=== PATIENT | male | born 1965 | race Caucasian/White ===

== ENCOUNTER 2017-06-21 10:01 | Emergency (ER) | payer OTHER ==
[~2017-06-21] VITALS: Ht 182.9 cm; Wt 84.2 kg
[2017-06-21 10:02] VITALS: TEMP 36.7; Ht 182.9 cm; Wt 84.2 kg
[2017-06-21] MEDS ORDERED: ACET-1256 PO (10:34)
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
[2017-06-21 11:24] VITALS: BP 125/77; PULSE 54; O2SAT 98
== END 2017-06-21 11:25 | disposition home or self-care (01) ==
LOC: C.EDB 10:02
DX: M25.511 Pain in right shoulder (principal); V89.2XXA Person injured in unspecified motor-vehicle accident, traffic, initial encounter; F17.210 Nicotine dependence, cigarettes, uncomplicated

== ENCOUNTER → 2017-09-01 | Outpatient (CLI) | payer OTHER ==
[~2017-09-01] MED LIST: ACET-1256 PO; GADAVIST IV PRN
--- NOTE | 2017-09-01 10:43 | DIAGNOSTIC IMAGING REPORT ---
FLUOROSCOPICALLY GUIDED PRE-MRI RIGHT SHOULDER ARTHROGRAPHIC INJECTION CLINICAL HISTORY: RT SHOULDER PAIN COMPARISON STUDY: Conventional radiographic study dated to 318 FINDINGS: A timeout was performed. The risks the procedure were explained the patient informed consent was obtained. 15 seconds of fluoroscopic time was utilized. A single fluoroscopic spot image was acquired. The patient was prepped and draped in sterile fashion. The skin was anesthetized 1% lidocaine. Under fluoroscopic guidance a 22-gauge spinal needle was introduced into the joint capsule. A mixture of Optiray 300 and gadolinium was injected into the joint. A fluoroscopic spot image confirmed intra-articular location of the contrast. IMPRESSION: Successful right shoulder arthrogram preceding and MRI. Electronically signed by: Jose Sarkar M.D. 09/01/2017 10:42 AM Dictated Date/Time: 09/01/2017 10:40 AM
--- NOTE | 2017-09-01 11:23 | DIAGNOSTIC IMAGING REPORT ---
POST ARTHROGRAM MRI THE RIGHT SHOULDER CLINICAL HISTORY: RT SHOULDER PAIN COMPARISON STUDY: Conventional radiographic study dated June 21, 2017 FINDINGS: Following a gadolinium arthrogram, imaging was performed in sagittal, axial, and coronal planes. There are no areas of marrow edema to indicate occult fracture or bone bruise. There is a longitudinal split tear of the bicipital tendon. There is extensive supraspinatus tendinopathy with a very large partial-thickness tear which is nearly full thickness. There is also a partial-thickness tear of the undersurface of the infraspinatus tendon. There is subtle subchondral cysts within the humeral head. There is a small peritendinous calcification at the level of the supraspinatus insertion No labral tears are visualized. IMPRESSION: 1. Very large partial-thickness tear of the supraspinatus tendon which is nearly full thickness. There is also a partial-thickness tear of the infraspinatus tendon. 2. Longitudinal split tear of the bicipital tendon 3. No evidence of labral tear Electronically signed by: Jose Sarkar M.D. 09/01/2017 11:21 AM Dictated Date/Time: 09/01/2017 11:15 AM
== END | disposition home or self-care (01) ==
LOC: C.MRIBC 09:50
PROVIDERS: ATTEND Orthopaedic Surgery
DX: M25.511 Pain in right shoulder (principal); S46.011A Strain of muscle(s) and tendon(s) of the rotator cuff of right shoulder, initial encounter; S46.211A Strain of muscle, fascia and tendon of other parts of biceps, right arm, initial encounter; X58.XXXA Exposure to other specified factors, initial encounter

== ENCOUNTER → 2017-10-04 | Outpatient (CLI) | payer OTHER ==
[~2017-10-04] MED LIST changes: -GADAVIST IV PRN
[2017-10-04 09:57] LABS: BASO % 0.2 %; BASO ABS # 0.01 K/uL (0-0.2); EOS % 1.3 %; EOS ABS # 0.06 K/uL (0-0.5); HEMATOCRIT 44.6 % (42-52); HEMOGLOBIN 15.5 g/dL (14.0-18.0); IG# 0.01 K/uL (0.00-0.02); LYMPH % 37.2 %; LYMPH ABS # 1.72 K/uL (1.2-3.4); MEAN CELL VOLUME 96.7 fL (80-100); MEAN CORPUSCULAR HEMOGLOBIN 33.6 pg (25-34); MEAN CORPUSCULAR HGB CONC 34.8 g/dl (32-36); MEAN PLATELET VOLUME 9.9 fL (7.4-10.4); MONO % 5.4 %; MONO ABS # 0.25 K/uL (0.11-0.59); NEUT % 55.7 %; NEUT ABS # 2.57 K/uL (1.4-6.5); PLATELET COUNT 198 K/uL (130-400); RED CELL DISTRIBUTION WIDTH CV 12.3 % (11.5-14.5); RED CELL DISTRIBUTION WIDTH SD 43.3 fL (36.4-46.3); WHITE BLOOD COUNT 4.62 K/uL (4.8-10.8)
[2017-10-04 10:20] LABS: BLOOD UREA NITROGEN 16 mg/dl (7-18); CARBON DIOXIDE 28 mmol/L (21-32); CREATININE 1.01 mg/dl (0.60-1.40); GLUCOSE 105 mg/dl (70-99); SODIUM 138 mmol/L (136-145)
== END | disposition home or self-care (01) ==
LOC: C.CPL 09:12
PROVIDERS: ATTEND Orthopaedic Surgery
DX: M25.511 Pain in right shoulder (principal)

== ENCOUNTER 2021-07-20 08:14 | Inpatient (IN) ==
[2021-07-20] MEDS ORDERED: SODIUM CHLORIDE 0.9% 1000ML 1,000 ML IV ONE (08:40)
[2021-07-20] MEDS ORDERED: THIAMINE HCL 200 MG in SODIUM CHLORIDE 0.9% 50 ML IV STA (08:51)
[2021-07-20] MEDS ORDERED: dexAMETHasone**PF** 10 MG/ML VIAL IV ONE (08:51)
[2021-07-20] MEDS ORDERED: ALBUT/IPRATROP 3MG/0.5MG NEB 3 ML VIAL NEB STA (08:51)
[2021-07-20] MEDS ORDERED: MULTI-VITAMIN INFUSION 10 ML, THIAMINE HCL 100 MG, FOLIC ACID 1 MG in SODIUM CHLORIDE 0... IV ONE (08:51)
[2021-07-20] MEDS ORDERED: ONDANSETRON INJ 2 MG/ML 2 ML VIAL IV STA (08:52)
[2021-07-20] MEDS ORDERED: LORazepam 2 MG/1 ML VIAL IV STA ×2 (08:52→13:53)
[2021-07-20] MEDS ORDERED: FAMOTIDINE 20MG IV PUSH 20 MG/5 ML SYR IV STA (08:52)
--- NOTE | 2021-07-20 08:59 | Emergency Department Note ---
Impression & Plan Alcohol withdrawal, EtOH dependence, Hypokalemia, Low serum magnesium level ED Provider Note NAME: JAJA ORELLANA AGE: 55 SEX: M ARRIVES VIA: Walk-In INFORMANT: Patient ED PROVIDER(S): Denis Lebron MD CHIEF COMPLAINT: Weakness, nausea, congestion, sob PLAN: Disposition: Admit MEDICAL DECISION MAKING: The patient is a pleasant 55-year-old gentleman with a past medical history of alcohol abuse/dependence, anemia, asthma who presents to the emergency department, accompanied by his for generalized weakness with ongoing nausea and decreased appetite and oral intake over the past week. They report that because he is feeling so weak and unwell he has not been drinking alcohol as much but is still drinking. He reports he last had alcohol last night. He does have a history of alcohol withdrawal but they deny any history of withdrawal seizures. They report he has had mild cough and congestion but had a negative COVID-19 home test x2 last Friday when his symptoms began. He is vaccinated for COVID-19. The patient is fatigued, anxious and tearful but no acute distress, afebrile stable vital signs. He appears clinically dry. Lungs with scant intermittent wheeze and otherwise clear. He has normal respiratory effort. EKG without overt acute ischemia. CXR negative for acute cardiopulmonary process. WBC, Hbg wnl. Platelets within prior range of values. Chemistry without acidosis. Potassium 3.1 and Magnesium 1.7 with repletion provided. Otherwise, electrolytes unremarkable. LFTs without significant abnormality. Troponin 0.04 wnl. Lipase is note elevated. Blood alcohol 298. Covid-19 RNA, NAAT negative. Upon re-evaluation the patient reported improved nausea after initial treatment including banana bag, pepcid, Zofran, and ativan and improved sob after dexamethasone and duoneb. However, we was exhibiting signs of etoh withdrawal with tachycardia and tremulousness. Additional Ativan ordered. Patient did report interest in detox and agreed with plan for admission. Case was discussed with Dr. Cabrera, [facility] hospitalist, who will evaluate the patient for admission. Triage Nursing notes reviewed and agree them. Prior medical records reviewed Vital Signs: reviewed and remarkable for tachycardia. Differential diagnosis: Infection, dehydration, metabolic abnormality, hypo/hyperglycemia, electrolyte disturbance, anemia, hypoxia, cardiac sources, intracerebral event, toxicologic, neurologic, as well as other pathologies. ER treatment provided: See below. Diagnostics interpreted by me: ECG: Sinus rhythm, 74 bpm, psvcs, no overt ST elevation or depression. Cardiac Monitoring: An order for continuous cardiac monitoring was placed and demonstrated Sinus rhythm, 74 bpm, psvcs. Laboratory studies: See below Imaging studies: See below Consultation(s): Case was discussed with Dr. Cabrera, [facility] hospitalist, who will evaluate the patient for admission. HPI: The patient is a pleasant 55-year-old gentleman with a past medical history of alcohol abuse/dependence, anemia, asthma who presents to the emergency department, accompanied by his for generalized weakness with ongoing nausea and decreased appetite and oral intake over the past week. They report that because he is feeling so weak and unwell he has not been drinking alcohol as much but is still drinking. He reports he last had alcohol last night. He does have a history of alcohol withdrawal but they deny any history of withdrawal seizures. They report he has had mild cough and congestion but had a negative COVID-19 home test x2 last Friday when his symptoms began. He is vaccinated for COVID-19. ROS: See above HPI for pertinent positives & negatives. A total of 10 systems reviewed and were otherwise negative. VITALS:See Below PHYSICAL EXAMINATION: GENERAL: Awake, alert, anxious/tearful-appearing, in no distress HENT: Normocephalic, atraumatic. Oropharynx with dry mucous membranes and otherwise unremarkable. EYES: Normal conjunctiva. Sclera non-icteric. EOMI. No nystamgus. PEARRL. NECK: Supple. No nuchal rigidity. FROM. No JVD. RESPIRATORY: Scant intermittent wheeze and otherwise clear. CARDIAC: Regular rate, normal rhythm. Extremities warm and well perfused. Pulses equal. ABDOMEN: Soft, non-distended. No tenderness to palpation. No rebound or guarding. No masses. RECTAL: Deferred. MUSCULOSKELETAL: Chest examination reveals no tenderness. The back is sym metrical on inspection without obvious abnormality. There is no CVA tenderness to palpation. No joint edema. LOWER EXTREMITIES: Calves are equal size bilaterally and non-tender. No edema. No discoloration. NEURO: Mildly tremulous. No focal sensory or motor deficits noted. SKIN: No rash or jaundice noted. ED COURSE: Critical Care: I have personally spent greater than 35 minutes of critical care time in the direct management of this patient. This includes bedside care, interpretation of diagnostic studies, and testing, discussion with consultants, patient, and family members, and other required patient management activities. This 35 minutes is in excess of all separately billable procedures. Denis Lebron MD Past Med/Surg History Medical History (Updated 07/20/21 @ 23:38 by Denis Lebron MD) Alcohol abuse Alcohol use disorder Allergic rhinitis Anxiety Asthma Current smoker Dysphagia ETOH abuse EtOH dependence Folate deficiency Insomnia Vitamin D deficiency Surgical History History of appendectomy History of repair of rotator cuff Family History (Updated 07/20/21 @ 16:39 by Cheryle Cabrera MD) Other Family history non-contributory Family history unknown Social History Smoking Status: Current every day smoker Tobacco Type: Cigarettes packs per day: 1.5; Tobacco Cessation Education Requested by Patient: No Hx Alcohol Use: Yes Alcohol type: hard liquor Alcohol Intake Frequency: 4 or More x per/Week Alcohol Intake Frequency Comment: 6 shots of liquor daily Hx Substance Use: No Preferred Language: Japanese Visual Impairment: No Limitations Hearing Ability: Normal Interlocking Machine Operator Required: No Beliefs That Will Affect Care: None marital status: Current Living Situation: Spouse current occupational status: employed 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 Other Information That Helps Us Care for You: No Feels Safe at Home: Yes Safety Concerns: Feels Safe At This Time Dental Care, Regularly: Yes Physical Activity Frequency: Does not Exercise Assistive Devices: None Allergies Allergies Allergy/AdvReac Type Severity Reaction Status Date / Time No Known Allergies Allergy Verified 07/20/21 09:56 Home Meds Home Medications Medication Instructions Recorded Confirmed cholecalciferol (vitamin D3) 25 0 mcg PO DAILY 07/20/21 07/20/21 mcg (1,000 unit) capsule (Vitamin D3) cyanocobalamin (vitamin B-12) 0 mcg PO DAILY 07/20/21 07/20/21 1,000 mcg tablet (Vitamin B-12) fluticasone propionate 50 1 spray INTRANASAL Q12H 07/20/21 07/20/21 mcg/actuation nasal spray,suspension loratadine 10 mg tablet (Claritin) 10 mg PO DAILY 07/20/21 07/20/21 naproxen 500 mg tablet 500 mg PO BID 07/20/21 07/20/21 Results & Data (ED) Vital Signs Vital Signs - 24 hr 07/20/21 08:23 07/20/21 09:27 07/20/21 09:28 Temperature 36.8 C Temperature Source Temporal Artery Scan Pulse Rate 100 H 71 83 Pulse Rate [Radial] 83 Pulse Rate from SpO2 Sensor 71 Pulse Rhythm Irregular Pulse Rhythm [Radial] Regular Pulse Strength [Radial] Respiratory Rate 20 14 16 Respiratory Effort / Characteristics Non-Labored Non-Labored Respiratory Depth Normal Normal Respiratory Pattern Regular Blood Pressure 111/77 126/87 Blood Pressure [Right Arm] 126/87 Blood Pressure Mean 88 100 Blood Pressure Mean [Right Arm] 100 Pulse Oximetry 95 97 97 Oxygen Delivery Method Room Air Room Air Sepsis Recent Fever Within 48 Hours No Sepsis New/Unexplained Change in Mental Status N/A Sepsis Action Taken by Nursing No Action Required 07/20/21 09:31 07/20/21 10:01 07/20/21 10:31 Temperature Temperature Source Pulse Rate 67 71 69 Pulse Rate [Radial] Pulse Rate from SpO2 Sensor 68 75 69 Pulse Rhythm Pulse Rhythm [Radial] Pulse Strength [Radial] Respiratory Rate 13 29 H 17 Respiratory Effort / Characteristics Respiratory Depth Respiratory Pattern Blood Pressure 109/72 128/58 L 163/91 H Blood Pressure [Right Arm] Blood Pressure Mean 84 81 115 Blood Pressure Mean [Right Arm] Pulse Oximetry 97 99 94 Oxygen Delivery Method Sepsis Recent Fever Within 48 Hours Sepsis New/Unexplained Change in Mental Status Sepsis Action Taken by Nursing 07/20/21 11:00 07/20/21 11:30 07/20/21 12:01 Temperature Temperature Source Pulse Rate 70 87 97 H Pulse Rate [Radial] Pulse Rate from SpO2 Sensor 70 87 90 Pulse Rhythm Pulse Rhythm [Radial] Pulse Strength [Radial] Respiratory Rate 19 14 22 Respiratory Effort / Characteristics Respiratory Depth Respiratory Pattern Blood Pressure 150/93 H 139/80 114/57 L Blood Pressure [Right Arm] Blood Pressure Mean 112 99 76 Blood Pressure Mean [Right Arm] Pulse Oximetry 95 91 99 Oxygen Delivery Method Sepsis Recent Fever Within 48 Hours Sepsis New/Unexplained Change in Mental Status Sepsis Action Taken by Nursing 07/20/21 12:30 07/20/21 13:00 07/20/21 13:18 Temperature Temperature Source Pulse Rate 94 H 96 H 91 H Pulse Rate [Radial] Pulse Rate from SpO2 Sensor 85 92 H 93 H Pulse Rhythm Pulse Rhythm [Radial] Pulse Strength [Radial] Respiratory Rate 4 L 15 15 Respiratory Effort / Characteristics Respiratory Depth Respiratory Pattern Blood Pressure 126/60 128/72 123/69 Blood Pressure [Right Arm] Blood Pressure Mean 82 90 87 Blood Pressure Mean [Right Arm] Pulse Oximetry 99 98 95 Oxygen Delivery Method Sepsis Recent Fever Within 48 Hours Sepsis New/Unexplained Change in Mental Status Sepsis Action Taken by Nursing 07/20/21 13:30 07/20/21 14:01 07/20/21 14:31 Temperature Temperature Source Pulse Rate 89 100 H 85 Pulse Rate [Radial] Pulse Rate from SpO2 Sensor 83 Pulse Rhythm Pulse Rhythm [Radial] Pulse Strength [Radial] Respiratory Rate 10 L 14 13 Respiratory Effort / Characteristics Respiratory Depth Respiratory Pattern Blood Pressure 135/72 109/88 165/89 H Blood Pressure [Right Arm] Blood Pressure Mean 93 95 114 Blood Pressure Mean [Right Arm] Pulse Oximetry 88 L 93 Oxygen Delivery Method Sepsis Recent Fever Within 48 Hours Sepsis New/Unexplained Change in Mental Status Sepsis Action Taken by Nursing 07/20/21 15:00 Temperature 36.8 C Temperature Source Oral Pulse Rate Pulse Rate [Radial] 98 H Pulse Rate from SpO2 Sensor Pulse Rhythm Pulse Rhythm [Radial] Pulse Strength [Radial] Normal Respiratory Rate 18 Respiratory Effort / Characteristics Non-Labored Respiratory Depth Normal Respiratory Pattern Regular Blood Pressure Blood Pressure [Right Arm] 197/145 H Blood Pressure Mean Blood Pressure Mean [Right Arm] 162 Pulse Oximetry 94 Oxygen Delivery Method Room Air Sepsis Recent Fever Within 48 Hours Sepsis New/Unexplained Change in Mental Status Sepsis Action Taken by Nursing Laboratory Data Result diagrams: 07/20/21 08:50 07/20/21 08:50 Lab Results 07/20/21 07/20/21 07/20/21 Range/Units 08:50 08:50 08:50 WBC 4.97 (4.8-10.8) K/uL RBC 4.36 L (4.7-6.1) M/uL Hgb 15.5 (14.0-18.0) g/dL Hct 41.8 L (42-52) % MCV 95.9 (80-100) fL MCH 35.6 H (25-34) pg MCHC 37.1 H (32-36) g/dL RDW Std Deviation 49.5 H (36.4-46.3) fL RDW Coeff of Chung 14.3 (11.5-14.5) % Plt Count 115 L (130-400) K/uL MPV 10.4 (7.4-10.4) fL Immature Gran % (Auto) 0.0 % Neut % (Auto) 47.0 % Lymph % (Auto) 42.5 % [place] % (Auto) 9.9 % Eos % (Auto) 0.2 % Baso % (Auto) 0.4 % Neut # (Auto) 2.34 (1.4-6.5) K/uL Lymph # (Auto) 2.11 (1.2-3.4) K/uL [place] # (Auto) 0.49 (0.11-0.59) K/uL Eos # (Auto) 0.01 (0-0.5) K/uL Baso # (Auto) 0.02 (0-0.2) K/uL Immature Gran # (Auto) 0.00 (0.00-0.02) K/uL Neutrophils % (Manual) 55.4 % Lymphocytes % (Manual) 12.5 % Reactive Lymphs % (Man) 25.0 % Monocytes % (Manual) 7.1 % Neutrophils # (Manual) 2.75 (1.4-6.5) K/uL Total Absolute Neuts 2.75 (1.4-6.5) K/uL Lymphocytes # (Manual) 0.62 L (1.2-3.4) K/uL Reactive Lymphs # 1.24 K/uL Total Abs Lymphocytes 1.86 (1.2-3.4) K/uL Monocytes # (Manual) 0.35 (0.11-0.59) K/uL Sodium 138 (136-145) mmol/L Potassium 3.1 L (3.5-5.1) mmol/L Chloride 100 (98-107) mmol/L Carbon Dioxide 26 (21-32) mmol/L Anion Gap 12 H (3-11) BUN 8 (6-23) mg/dl Creatinine 0.66 (0.6-1.4) mg/dl Est Cr Clr Drug Dosing 156.0 ml/min Est GFR ( Amer) 125.3 ml/min Est GFR (Non-Af Amer) 108.1 ml/min BUN/Creatinine Ratio 12.1 (10-20) Glucose 128 H (70-99(Fasting)) mg/dl Calcium 8.5 (8.5-10.1) mg/dl Phosphorus 2.7 (2.5-4.9) mg/dl Magnesium 1.7 (1.7-2.4) mg/dl Total Bilirubin 0.9 (0.2-1.0) mg/dl AST 20 (13-39) U/L ALT 11 (7-52) U/L Alkaline Phosphatase 50 (34-104) U/L Troponin I 0.04 (0-0.04) ng/ml Total Protein 7.3 (6.0-8.3) gm/dl Albumin 4.0 (3.4-5.0) gm/dl Globulin 3.3 (2.5-4.0) gm/dl Albumin/Globulin Ratio 1.2 (0.9-2) Lipase 34 (11-82) U/L Ethyl Alcohol mg/dL 298.8 H (<10.0) mg/dl SARS-CoV-2, RNA, NAAT (NEGATIVE) 07/20/21 Range/Units 11:45 WBC (4.8-10.8) K/uL RBC (4.7-6.1) M/uL Hgb (14.0-18.0) g/dL Hct (42-52) % MCV (80-100) fL MCH (25-34) pg MCHC (32-36) g/dL RDW Std Deviation (36.4-46.3) fL RDW Coeff of Chung (11.5-14.5) % Plt Count (130-400) K/uL MPV (7.4-10.4) fL Immature Gran % (Auto) % Neut % (Auto) % Lymph % (Auto) % [place] % (Auto) % Eos % (Auto) % Baso % (Auto) % Neut # (Auto) (1.4-6.5) K/uL Lymph # (Auto) (1.2-3.4) K/uL [place] # (Auto) (0.11-0.59) K/uL Eos # (Auto) (0-0.5) K/uL Baso # (Auto) (0-0.2) K/uL Immature Gran # (Auto) (0.00-0.02) K/uL Neutrophils % (Manual) % Lymphocytes % (Manual) % Reactive Lymphs % (Man) % Monocytes % (Manual) % Neutrophils # (Manual) (1.4-6.5) K/uL Total Absolute Neuts (1.4-6.5) K/uL Lymphocytes # (Manual) (1.2-3.4) K/uL Reactive Lymphs # K/uL Total Abs Lymphocytes (1.2-3.4) K/uL Monocytes # (Manual) (0.11-0.59) K/uL Sodium (136-145) mmol/L Potassium (3.5-5.1) mmol/L Chloride (98-107) mmol/L Carbon Dioxide (21-32) mmol/L Anion Gap (3-11) BUN (6-23) mg/dl Creatinine (0.6-1.4) mg/dl Est Cr Clr Drug Dosing ml/min Est GFR ( Amer) ml/min Est GFR (Non-Af Amer) ml/min BUN/Creatinine Ratio (10-20) Glucose (70-99(Fasting)) mg/dl Calcium (8.5-10.1) mg/dl Phosphorus (2.5-4.9) mg/dl Magnesium (1.7-2.4) mg/dl Total Bilirubin (0.2-1.0) mg/dl AST (13-39) U/L ALT (7-52) U/L Alkaline Phosphatase (34-104) U/L Troponin I (0-0.04) ng/ml Total Protein (6.0-8.3) gm/dl Albumin (3.4-5.0) gm/dl Globulin (2.5-4.0) gm/dl Albumin/Globulin Ratio (0.9-2) Lipase (11-82) U/L Ethyl Alcohol mg/dL (<10.0) mg/dl SARS-CoV-2, RNA, NAAT NEGATIVE (NEGATIVE) Administered Medications Chlordiazepoxide HCl (Chlordiazepoxide Hcl 25 Mg Cap) 25 mg PO Q6H DOMINIC; Taper Stop: 07/22/21 18:41 Last Admin: 07/20/21 21:51 Dose: 25 mg Documented by: [id number] Fluticasone Propionate (Fluticasone Propionate Na Spr 16 Gm Btl) 1 sprays RUDI Q12 DOMINIC Stop: 08/19/21 20:59 Last Admin: 07/20/21 21:52 Dose: Not Given Documented by: [id number] Pantoprazole Sodium 40 mg/ (Syringe) 10 mls @ 5 mls/min IV BID DOMINIC Stop: 08/19/21 20:59 Last Admin: 07/20/21 22:19 Dose: 5 mls/min Documented by: [id number] Potassium Chloride/Sodium Chloride (Normal Saline W/20 Meq Kcl) 20 meq in 1,000 mls @ 80 mls/hr IV .[id number] DOMINIC Stop: 07/21/21 07:11 Last Admin: 07/20/21 22:19 Dose: 80 mls/hr Documented by: [id number] Lorazepam (Lorazepam 2 Mg/1 Ml Vial) 1 mg IV UD PRN; Protocol PRN Reason: EtOH Withdrawl AWSS Score 6,7 Stop: 08/19/21 18:41 Last Admin: 07/20/21 19:19 Dose: 1 mg Documented by: [id number] Discontinued Medications Albuterol (Albut/Ipratrop 3mg/0.5mg Neb 3 Ml Vial) 3 ml NEB NOW STA; Protocol Stop: 07/20/21 08:52 Last Admin: 07/20/21 09:20 Dose: 3 ml Documented by: [id number] Dexamethasone Sodium Phosphate (DexamethasonePf 10 Mg/Ml Vial) 10 mg IV NOW ONE Stop: 07/20/21 08:52 Last Admin: 07/20/21 09:20 Dose: 10 mg Documented by: [id number] Sodium Chloride (Nss 1000ml) 1,000 mls @ 999 mls/hr IV .Q1H1M ONE Stop: 07/20/21 09:40 Last Admin: 07/20/21 09:21 Dose: Not Given Documented by: [id number] Multivitamins 10 ml/ Thiamine HCl 100 mg/ Folic Acid 1 mg/Sodium Chloride 1,011.2 mls @ 1,011.2 mls/hr IV .Q1H ONE Stop: 07/20/21 09:50 Last Infusion: 07/20/21 11:44 Dose: 0 mls/hr Documented by: [id number] Admin: 07/20/21 09:21 Dose: 1,011.2 mls/hr Documented by: [id number] Thiamine HCl 200 mg/ Sodium (Chloride) 52 mls @ 208 mls/hr IV NOW STA Stop: 07/20/21 08:52 Last Infusion: 07/20/21 11:44 Dose: 0 mls/hr Documented by: [id number] Admin: 07/20/21 11:15 Dose: 208 mls/hr Documented by: [id number] Famotidine (Pepcid 20mg Iv Push) 20 mg in 5 mls @ 2.5 mls/min IV NOW STA Stop: 07/20/21 08:53 Last Admin: 07/20/21 09:20 Dose: 2.5 mls/min Documented by: [id number] Magnesium Sulfate/Dextrose (Magnesium Sulfate / D5w) 1 gm in 100 mls @ 100 mls/hr IV NOW STA Stop: 07/20/21 12:15 Last Infusion: 07/20/21 14:10 Dose: 0 mls/hr Documented by: [id number] Admin: 07/20/21 13:12 Dose: 100 mls/hr Documented by: [id number] Potassium Chloride (K Adan / Wtr) 10 meq in 100 mls @ 100 mls/hr IV ONE ONE; Protocol Stop: 07/20/21 12:15 Last Infusion: 07/20/21 13:12 Dose: 0 mls/hr Documented by: [id number] Admin: 07/20/21 11:39 Dose: 100 mls/hr Documented by: [id number] Sodium Chloride (Nss 1000ml) 1,000 mls @ 999 mls/hr IV .Q1H1M DOMINIC Stop: 07/20/21 12:17 Last Infusion: 07/20/21 13:12 Dose: 0 mls/hr Documented by: [id number] Admin: 07/20/21 11:39 Dose: 999 mls/hr Documented by: [id number] Potassium Chloride (K Adan / Wtr) 10 meq in 100 mls @ 100 mls/hr IV Q1H DOMINIC; Protocol Stop: 07/20/21 18:14 Last Infusion: 07/20/21 20:17 Dose: 0 mls/hr Documented by: [id number] Admin: 07/20/21 17:48 Dose: 100 mls/hr Documented by: [id number] Infusion: 07/20/21 17:48 Dose: 0 mls/hr Documented by: [id number] Admin: 07/20/21 16:36 Dose: 100 mls/hr Documented by: [id number] Lorazepam (Lorazepam 2 Mg/1 Ml Vial) 1 mg IV NOW STA Stop: 07/20/21 08:53 Last Admin: 07/20/21 09:20 Dose: 1 mg Documented by: [id number] Lorazepam (Lorazepam 2 Mg/1 Ml Vial) 2 mg IV NOW STA Stop: 07/20/21 13:54 Last Admin: 07/20/21 14:09 Dose: 2 mg Documented by: [id number] Lorazepam (Lorazepam 2 Mg/1 Ml Vial) Confirm Administered Dose 2 mg .ROUTE .STK- MED ONE Stop: 07/20/21 18:53 Last Admin: 07/20/21 19:20 Dose: Not Given Documented by: [id number] Nicotine (Nicotine 21 Mg/24 Hr Tdsy) Confirm Administered Dose 21 mg TD .STK-MED ONE Stop: 07/20/21 18:52 Last Admin: 07/20/21 19:19 Dose: 21 mg Documented by: [id number] Ondansetron HCl (Ondansetron Inj 2 Mg/Ml 2 Ml Vial) 4 mg IV NOW STA Stop: 07/20/21 08:53 Last Admin: 07/20/21 09:20 Dose: 4 mg Documented by: [id number] Discharge Plan Visit Data Chief Complaint: Weakness Stated Complaint: NOT EATING, WEAK, ANEMIC, CHEST TIGHTNESS, COUGH ED Provider: Denis Lebron Discharge Problem: Alcohol withdrawal, EtOH dependence, Hypokalemia, Low serum magnesium level Patient Disposition: Admitted As Inpatient Discharge Instructions Interventions: ED Discharge Assessment Last Done: 07/20/21 20:17 Discharge Problem: Alcohol withdrawal Qualifiers: Complication of substance-induced condition: with unspecified complication Qualified Code(s): F10.239 - Alcohol dependence with withdrawal, unspecified EtOH dependence Qualifiers: Substance use status: unspecified alcohol-induced disorder Qualified Code(s): F10.29 - Alcohol dependence with unspecified alcohol-induced disorder
[2021-07-20 09:02] LABS: Basophils # (auto) 0.02 K/uL (0-0.2); Basophils % (auto) 0.4 %; Eosinophils # (auto) 0.01 K/uL (0-0.5); Eosinophils % (auto) 0.2 %; Hematocrit (blood only) 41.8 % (42-52); Hemoglobin 15.5 g/dL (14.0-18.0); Lymphocytes # (auto) 2.11 K/uL (1.2-3.4); Lymphocytes % (auto) 42.5 %; Mean Corpuscular Hemoglobin 35.6 pg (25-34); Mean Corpuscular Hgb Conc 37.1 g/dL (32-36); Mean Corpuscular Volume 95.9 fL (80-100); Mean Platelet Volume 10.4 fL (7.4-10.4); Monocytes # (auto) 0.49 K/uL (0.11-0.59); Monocytes % (auto) 9.9 %; Neutrophils # (auto) 2.34 K/uL (1.4-6.5); Platelet Count 115 K/uL (130-400); RDW Coefficient of Variation 14.3 % (11.5-14.5); RDW Standard Deviation 49.5 fL (36.4-46.3); Red Blood Count 4.36 M/uL (4.7-6.1); White Blood Count 4.97 K/uL (4.8-10.8)
--- NOTE | 2021-07-20 09:23 | XRay Report ---
XR chest 1V portable CLINICAL HISTORY: Atypical chest pain. COMPARISON STUDY: Chest radiograph October 22, 2018. FINDINGS: Lung volumes are normal. Lungs are clear. There is no pneumothorax or pleural effusion. Car diac size is normal. Mediastinal contours are normal. There is no evidence for pulmonary edema. IMPRESSION: No acute cardiopulmonary findings. ACT 112: Negative or not required by law. Electronically signed by: Clemente Joseph M.D. 07/20/2021 9:22 AM
[2021-07-20 09:25] LABS: ALC (manual) 1.86 K/uL (1.2-3.4); ANC (manual) 2.75 K/uL (1.4-6.5); Lymphocytes # (manual) 0.62 K/uL (1.2-3.4); Lymphocytes % (manual) 12.5 %; Monocytes # (manual) 0.35 K/uL (0.11-0.59); Monocytes % (manual) 7.1 %; Neutrophils # (manual) 2.75 K/uL (1.4-6.5); Neutrophils % (manual) 55.4 %; Reactive Lymphocytes # (manual) 1.24 K/uL
[2021-07-20 09:28] LABS: Albumin Globulin Ratio 1.2 (0.9-2); BUN Creatinine Ratio 12.1 (10-20); Bilirubin,Total 0.9 mg/dl (0.2-1.0); Calcium 8.5 mg/dl (8.5-10.1); Est GFR (African American) 125.3 ml/min; Est GFR (Non-African American) 108.1 ml/min; Globulin 3.3 gm/dl (2.5-4.0); Magnesium 1.7 mg/dl (1.7-2.4); Phosphorus 2.7 mg/dl (2.5-4.9); Potassium 3.1 mmol/L (3.5-5.1); Total Protein 7.3 gm/dl (6.0-8.3)
[2021-07-20 09:30] LABS: Troponin I 0.04 ng/ml (0-0.04)
[2021-07-20] MEDS ORDERED: POTASSIUM CHLORIDE / WTR 10 MEQ/100 ML PLCT IV ONE (11:16)
[2021-07-20] MEDS ORDERED: MAGNESIUM SULFATE / D5W 1 GM/100 ML BAG IV STA (11:16)
[2021-07-20] MEDS ORDERED: SODIUM CHLORIDE 0.9% 1000ML 1,000 ML IV SCH (11:17)
[2021-07-20] MEDS ORDERED: LORazepam 2 MG/1 ML VIAL IV PRN ×3 (13:55→18:42)
--- NOTE | 2021-07-20 15:53 | History & Physical Report ---
Date of Service July 20, 2021 Assessment & Plan (1) Alcohol use disorder: Plan: Presents with signs and symptoms of alcohol use disorder with dependence and withdrawal Alcohol level 298 on arrival, last drink around midnight on the night of / No history of seizures but is having significant nausea/vomiting and here with hypokalemia and significant hypertension and some tachycardia Risk is high enough that he should be hospitalized for his withdrawal -Admit to medical floor with telemetry for arrhythmia monitoring -Give IV fluids with potassium chloride and replace potassium as below -Start Librium taper -AWSS scale and IV Ativan as needed -Continue IV thiamine and IV folate daily until tolerating p.o. then can be converted to p.o. -Consult case management for options on inpatient versus outpatient alcohol rehab -PCP should consider treatment as an outpatient with naltrexone with close monitoring (2) Nausea & vomiting: Plan: Secondary to alcohol withdrawal Treat with IV Zofran as needed Treating alcohol withdrawal as above with Librium and IV Ativan Start Protonix 40 mg IV twice daily given heartburn and scant hematemesis likely Erika-Carrasco tear Clear liquids diet for now and slowly advance as tolerated (3) Hypokalemia: Plan: Potassium 3.1 on arrival, was given KCl 10 mEq IV x1 in the ER We will give 20 more milliequivalents of KCl IV and then start normal saline with 20 mEq KCl at 80 mL's per hour Clear liquids diet Follow BMP and magnesium in the morning Was given 1 g IV magnesium here (4) Elevated blood pressure reading: Plan: Secondary to alcohol withdrawal Treating alcohol withdrawal with benzodiazepines as above Also can give hydralazine 10 mg IV every 8 hours as needed SBP greater than 180 (5) Vitamin D deficiency: Plan: Hold home p.o. vitamin D while nauseated (6) Folate deficiency: Plan: Recent folate level checked and was low at 3 Continue folic acid 1 mg daily replacement (7) Allergic rhinitis: Plan: Continue home Claritin and fluticasone nasal spray (8) Current smoker: Plan: Smokes 1.5 packs/day Counseled on cessation Start nicotine patch 21 mg TD once daily (9) Arthralgia: Plan: Advised discontinuation of NSAIDs given high risk for PUD with heavy alcohol use Can take Tylenol as needed for pain (10) Transaminitis: Plan: Mild elevation in AST and alk phos likely secondary to fatty liver seen on CT abdomen/pelvis from 2 years ago, plus heavy alcohol use Should improve with cessation of alcohol on weight loss and low carbohydrate diet Follow LFTs in the morning (11) Thrombocytopenia: Plan: Mild thrombocytopenia in the 90s, likely secondary to alcoholic liver disease Follow CBC (12) Asthma: Plan: Has a history of asthma, was apparently wheezing a bit on arrival and was treated with duo nebs and dexamethasone 10 mg IV x1 No longer wheezing We will hold off on any further Decadron at this time as this may exacerbate his anxiety secondary to alcohol withdrawal Continue duo nebs as needed Not hypoxic Plan: DVT prophylaxis-SCDs only for now given hematemesis Disposition-admit to medical floor telemetry, however patient is hoping to be discharged as long as tolerating p.o. and electrolyte abnormalities improved by tomorrow Could consider discharging to home with Librium taper Full code History of Present Illness Chief Complaint: Alcohol withdrawal, nausea/vomiting Primary Care Provider: [facility] This patient is a 55-year-old male with history of alcohol use disorder and vitamin D deficiency as well as allergic rhinitis, arthritis, and folate deficiency who presents to the ER with generalized weakness, nausea/vomiting, alcohol withdrawal. He started with some cold symptoms last week and his had him take a Covid test at home which was negative. He started to reduce the amount of alcohol that he was drinking because he was not feeling well and his last drink was last night. He then has been having nausea and vomiting, sometimes with a scant amount of bright red blood in the vomit for the last several days and not able to keep anything down. He has had some intermittent epigastric abdominal pain but currently not having any. He is also been having heartburn from throwing up which is better with IV Pepcid given in the ER. He and his report that he has never had seizures before and he has managed his alcohol withdrawal at home in the past but it has been quite difficult and he typically is not able to keep anything by mouth down for several days. In the ER, he was found to be tremulous, quite anxious and emotionally labile, severely hypertensive and tachycardic. He was also found to be hypokalemic and mildly thrombocytopenic. His alcohol level was almost 300. He was treated with a banana bag, IV Ativan, IV Decadron for some wheezing, IV Pepcid, IV magnesium, Zofran normal saline, and 2 K riders. When I first came to see him, he thought he was feeling a little bit better and did tolerate some Sprite, but was agreeable to be hospitalized to ensure his hypokalemia was corrected, treat his dehydration, ensure he was able to tolerate further p.o., and for treatment of his alcohol withdrawal with benzodiazepines. 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 Allergies Allergy/AdvReac Type Severity Reaction Status Date / Time No Known Allergies Allergy Verified 07/20/21 09:56 Home Medications Medication Instructions Recorded Confirmed Type cholecalciferol (vitamin D3) 25 0 mcg PO DAILY 07/20/21 07/20/21 History mcg (1,000 unit) capsule (Vitamin D3) cyanocobalamin (vitamin B-12) 0 mcg PO DAILY 07/20/21 07/20/21 History 1,000 mcg tablet (Vitamin B-12) fluticasone propionate 50 1 spray INTRANASAL Q12H 07/20/21 07/20/21 History mcg/actuation nasal spray,suspension loratadine 10 mg tablet (Claritin) 10 mg PO DAILY 07/20/21 07/20/21 History naproxen 500 mg tablet 500 mg PO BID 07/20/21 07/20/21 History Past Med/Surg History Medical History (Updated 07/20/21 @ 16:51 by Cheryle Cabrera MD) Alcohol abuse Alcohol use disorder Allergic rhinitis Anxiety Asthma Current smoker Dysphagia ETOH abuse EtOH dependence Folate deficiency Insomnia Vitamin D deficiency Surgical History History of appendectomy History of repair of rotator cuff Family History (Updated 07/20/21 @ 16:39 by Cheryle Cabrera MD) Other Family history non-contributory Family history unknown Social History Smoking Status: Current every day smoker Tobacco Type: Cigarettes packs per day: 1.5; Hx Alcohol Use: Yes Alcohol type: hard liquor Alcohol Intake Frequency: 4 or More x per/Week Alcohol Intake Frequency Comment: 6 shots of liquor daily Hx Substance Use: No Preferred Language: Emirati Visual Impairment: No Limitations Hearing Ability: Normal marital status: Current Living Situation: Spouse current occupational status: employed 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 Has chronic arthritis in some of his joints Physical Exam Constitutional: WD/WN, vitals as above Eyes: PERRL, conjunctivae normal, anicteric sclerae ENMT: external ear and nose normal, oropharynx normal Neck: trachea midline, no thyromegaly Respiratory: normal respiratory effort, lungs clear to auscultation Cardiovascular: Rate/Rhythm: regular rhythm and + tachycardic Heart Sounds: no murmur Vessels: dorsalis pedis pulses present Extremities: no edema Chest (Breasts): Chest: normal inspection of chest Gastrointestinal (Abdomen): normal bowel sounds, soft, nontender, no hepatosplenomegaly Musculoskeletal: Extremities: extremities normal to inspection; no cyanosis and no clubbing Skin: no rashes, warm and dry Neurologic: moves all extremities and awake; no focal motor deficits Psychiatric: Orientation: alert and oriented x 3 Eye Contact: good eye contact Affect: + anxious affect and + tearful affect Mood: + depressed mood and + anxious mood Lymphatic: no lymphedema Results & Data Results & Data ([facility]) Vital Signs (Past 12 Hours) Vital Signs Temp Pulse Pulse Resp BP BP Pulse Ox 07/20/21 15:00 36.8 C 98 H 18 197/145 H 94 07/20/21 14:31 85 13 165/89 H 93 07/20/21 14:01 100 H 14 109/88 07/20/21 13:30 89 10 L 135/72 88 L 07/20/21 13:18 91 H 15 123/69 95 07/20/21 13:00 96 H 15 128/72 98 07/20/21 12:30 94 H 4 L 126/60 99 07/20/21 12:01 97 H 22 114/57 L 99 07/20/21 11:30 87 14 139/80 91 07/20/21 11:00 70 19 150/93 H 95 07/20/21 10:31 69 17 163/91 H 94 07/20/21 10:01 71 29 H 128/58 L 99 07/20/21 09:31 67 13 109/72 97 07/20/21 09:28 83 83 16 126/87 97 07/20/21 09:27 71 14 126/87 97 07/20/21 08:23 36.8 C 100 H 20 111/77 95 Laboratory Results 07/20/21 07/20/21 07/20/21 Range/Units 11:45 08:50 08:50 WBC (4.8-10.8) K/uL RBC (4.7-6.1) M/uL Hgb (14.0-18.0) g/dL Hct (42-52) % MCV (80-100) fL MCH (25-34) pg MCHC (32-36) g/dL RDW Std Deviation (36.4-46.3) fL RDW Coeff of Chung (11.5-14.5) % Plt Count (130-400) K/uL MPV (7.4-10.4) fL Immature Gran % (Auto) % Neut % (Auto) % Lymph % (Auto) % [place] % (Auto) % Eos % (Auto) % Baso % (Auto) % Neut # (Auto) (1.4-6.5) K/uL Lymph # (Auto) (1.2-3.4) K/uL [place] # (Auto) (0.11-0.59) K/uL Eos # (Auto) (0-0.5) K/uL Baso # (Auto) (0-0.2) K/uL Immature Gran # (Auto) (0.00-0.02) K/uL Neutrophils % (Manual) % Lymphocytes % (Manual) % Reactive Lymphs % (Man) % Monocytes % (Manual) % Neutrophils # (Manual) (1.4-6.5) K/uL Total Absolute Neuts (1.4-6.5) K/uL Lymphocytes # (Manual) (1.2-3.4) K/uL Reactive Lymphs # K/uL Total Abs Lymphocytes (1.2-3.4) K/uL Monocytes # (Manual) (0.11-0.59) K/uL Sodium 138 (136-145) mmol/L Potassium 3.1 L (3.5-5.1) mmol/L Chloride 100 (98-107) mmol/L Carbon Dioxide 26 (21-32) mmol/L Anion Gap 12 H (3-11) BUN 8 (6-23) mg/dl Creatinine 0.66 (0.6-1.4) mg/dl Est Cr Clr Drug Dosing 156.0 ml/min Est GFR ( Amer) 125.3 ml/min Est GFR (Non-Af Amer) 108.1 ml/min BUN/Creatinine Ratio 12.1 (10-20) Glucose 128 H (70-99(Fasting)) mg/dl Calcium 8.5 (8.5-10.1) mg/dl Phosphorus 2.7 (2.5-4.9) mg/dl Magnesium 1.7 (1.7-2.4) mg/dl Total Bilirubin 0.9 (0.2-1.0) mg/dl AST 20 (13-39) U/L ALT 11 (7-52) U/L Alkaline Phosphatase 50 (34-104) U/L Troponin I 0.04 (0-0.04) ng/ml Total Protein 7.3 (6.0-8.3) gm/dl Albumin 4.0 (3.4-5.0) gm/dl Globulin 3.3 (2.5-4.0) gm/dl Albumin/Globulin Ratio 1.2 (0.9-2) Lipase 34 (11-82) U/L Ethyl Alcohol mg/dL 298.8 H (<10.0) mg/dl SARS-CoV-2, RNA, NAAT NEGATIVE (NEGATIVE) 07/20/21 Range/Units 08:50 WBC 4.97 (4.8-10.8) K/uL RBC 4.36 L (4.7-6.1) M/uL Hgb 15.5 (14.0-18.0) g/dL Hct 41.8 L (42-52) % MCV 95.9 (80-100) fL MCH 35.6 H (25-34) pg MCHC 37.1 H (32-36) g/dL RDW Std Deviation 49.5 H (36.4-46.3) fL RDW Coeff of Chung 14.3 (11.5-14.5) % Plt Count 115 L (130-400) K/uL MPV 10.4 (7.4-10.4) fL Immature Gran % (Auto) 0.0 % Neut % (Auto) 47.0 % Lymph % (Auto) 42.5 % [place] % (Auto) 9.9 % Eos % (Auto) 0.2 % Baso % (Auto) 0.4 % Neut # (Auto) 2.34 (1.4-6.5) K/uL Lymph # (Auto) 2.11 (1.2-3.4) K/uL [place] # (Auto) 0.49 (0.11-0.59) K/uL Eos # (Auto) 0.01 (0-0.5) K/uL Baso # (Auto) 0.02 (0-0.2) K/uL Immature Gran # (Auto) 0.00 (0.00-0.02) K/uL Neutrophils % (Manual) 55.4 % Lymphocytes % (Manual) 12.5 % Reactive Lymphs % (Man) 25.0 % Monocytes % (Manual) 7.1 % Neutrophils # (Manual) 2.75 (1.4-6.5) K/uL Total Absolute Neuts 2.75 (1.4-6.5) K/uL Lymphocytes # (Manual) 0.62 L (1.2-3.4) K/uL Reactive Lymphs # 1.24 K/uL Total Abs Lymphocytes 1.86 (1.2-3.4) K/uL Monocytes # (Manual) 0.35 (0.11-0.59) K/uL Sodium (136-145) mmol/L Potassium (3.5-5.1) mmol/L Chloride (98-107) mmol/L Carbon Dioxide (21-32) mmol/L Anion Gap (3-11) BUN (6-23) mg/dl Creatinine (0.6-1.4) mg/dl Est Cr Clr Drug Dosing ml/min Est GFR ( Amer) ml/min Est GFR (Non-Af Amer) ml/min BUN/Creatinine Ratio (10-20) Glucose (70-99(Fasting)) mg/dl Calcium (8.5-10.1) mg/dl Phosphorus (2.5-4.9) mg/dl Magnesium (1.7-2.4) mg/dl Total Bilirubin (0.2-1.0) mg/dl AST (13-39) U/L ALT (7-52) U/L Alkaline Phosphatase (34-104) U/L Troponin I (0-0.04) ng/ml Total Protein (6.0-8.3) gm/dl Albumin (3.4-5.0) gm/dl Globulin (2.5-4.0) gm/dl Albumin/Globulin Ratio (0.9-2) Lipase (11-82) U/L Ethyl Alcohol mg/dL (<10.0) mg/dl SARS-CoV-2, RNA, NAAT (NEGATIVE) Diagnostic Findings Chest X-Ray 07/20/21 08:39 XR chest 1V portable CLINICAL HISTORY: Atypical chest pain. COMPARISON STUDY: Chest radiograph October 22, 2018. FINDINGS: Lung volumes are normal. Lungs are clear. There is no pneumothorax or pleural effusion. Cardiac size is normal. Mediastinal contours are normal. There is no evidence for pulmonary edema. IMPRESSION: No acute cardiopulmonary findings. ACT 112: Negative or not required by law. Electronically signed by: Clemente Joseph M.D. 07/20/2021 9:22 AM Code Status & VTE Plan Code Status ECG on 07/20/2021 at 8:47 AM with sinus rhythm with PACs, no ischemic changes VTE Prophylaxis Plan VTE Prophylaxis will be ordered: Yes PG Care Time/CCT Total # of Minutes Spent Total Time Spent with Patient: Total time spent is greater than 50% in coordination of care (as documented) at patient's floor/unit and/or counseling patient: Coding Level of Care Code 32762 Initial Inpt Care Lvl 3 Diagnoses Arthralgia M25.50 Alcohol use disorder Current smoker F17.200 Nausea & vomiting R11.2 Hypokalemia E87.6 Elevated blood pressure reading R03.0 Vitamin D deficiency E55.9 Folate deficiency E53.8 Allergic rhinitis J30.9 Transaminitis R74.01 Thrombocytopenia D69.6 Asthma J45.909
[2021-07-20] MEDS ORDERED: chlordiazePOXIDE ALCOHOL WITHDRAWL 25MG PO STA (16:28)
[2021-07-20] MEDS: POTASSIUM CHLORIDE / WTR 10 MEQ/100 ML PLCT IV SCH ×2 (16:36→17:48)
[2021-07-20] MEDS ORDERED: hydrALAZINE HCL 20 MG/ML VIAL IV PRN (18:42)
[2021-07-20] MEDS ORDERED: ONDANSETRON INJ 2 MG/ML 2 ML VIAL IV PRN (18:42)
[2021-07-20] MEDS ORDERED: ATIVAN IV ALCOHOL WITHDRAWL IV PRN (18:42)
[2021-07-20] MEDS ORDERED: ALBUT/IPRATROP 3MG/0.5MG NEB 3 ML VIAL NEB PRN (18:42)
[2021-07-20] MEDS ORDERED: ACETAMINOPHEN 325 MG TAB PO PRN (18:42)
[2021-07-20] MEDS ORDERED: NSS + 20MEQ KCL 20 MEQ/1,000 ML BAG IV SCH (18:42)
[2021-07-20] MEDS ORDERED: ALUMINUM/MAGNESIUM SUSP 30 ML UDC PO PRN (18:42)
[2021-07-20] MEDS ORDERED: NICOTINE 21 MG/24 HR TDSY TD ONE (18:51)
[2021-07-20] MEDS ORDERED: LORazepam 2 MG/1 ML VIAL ONE (18:52)
--- NOTE | 2021-07-20 18:59 | Electrocardiogram Report ---
Test Reason : Blood Pressure : / mmHG Vent. Rate : 074 BPM Atrial Rate : 074 BPM P-R Int : 136 ms QRS Dur : 110 ms QT Int : 372 ms P-R-T Axes : 058 050 065 degrees QTc Int : 412 ms Sinus rhythm with Premature supraventricular complexes Abnormal ECG When compared with ECG of 22-OCT-2018 19:56, Premature supraventricular complexes are now Present Confirmed by Madi Gómez ([id number]) on 07/20/2021 6:59:26 PM Referred By: ER Confirmed By:Abdirashid Gómez
[2021-07-20] MEDS: LORazepam 2 MG/1 ML VIAL IV PRN (19:19)
[2021-07-20] MEDS: chlordiazePOXIDE HCl 25 MG CAP PO SCH (21:51)
[2021-07-20] MEDS: FLUTICASONE PROPIONATE NA SPR 16 GM BTL NAE SCH (21:52)
[2021-07-20] MEDS: PANTOprazole 40 MG in SYRINGE 0 ML IV SCH (22:19)
[2021-07-21] MEDS: chlordiazePOXIDE HCl 25 MG CAP PO SCH ×3 (00:37→13:18)
[2021-07-21] MEDS: LORazepam 2 MG/1 ML VIAL IV PRN (03:20)
[2021-07-21 08:17] LABS: Basophils # (auto) 0.01 K/uL (0-0.2); Basophils % (auto) 0.1 %; Hematocrit (blood only) 39.5 % (42-52); Hemoglobin 14.3 g/dL (14.0-18.0); Immature Granulocytes # (auto) 0.02 K/uL (0.00-0.02); Immature Granulocytes % (auto) 0.3 %; Lymphocytes % (auto) 17.6 %; Mean Corpuscular Hemoglobin 35.3 pg (25-34); Mean Corpuscular Hgb Conc 36.2 g/dL (32-36); Mean Corpuscular Volume 97.5 fL (80-100); Mean Platelet Volume 11.1 fL (7.4-10.4); Monocytes # (auto) 0.55 K/uL (0.11-0.59); Monocytes % (auto) 8.1 %; Neutrophils # (auto) 5.03 K/uL (1.4-6.5); Neutrophils % (auto) 73.9 %; Platelet Count 105 K/uL (130-400); RDW Coefficient of Variation 14.1 % (11.5-14.5); RDW Standard Deviation 50.2 fL (36.4-46.3); Red Blood Count 4.05 M/uL (4.7-6.1); White Blood Count 6.81 K/uL (4.8-10.8)
[2021-07-21 08:28] LABS: INR 1.3 (0.9-1.1); Prothrombin Time 13.2 Seconds (9.0-12.0)
[2021-07-21 08:40] LABS: Albumin Level 3.9 gm/dl (3.4-5.0); BUN Creatinine Ratio 14.1 (10-20); Bilirubin Direct 0.3 mg/dl (0-0.2); Bilirubin,Total 2.1 mg/dl (0.2-1.0); Calcium 8.3 mg/dl (8.5-10.1); Creatinine Clr Calc Pharmacy 160.9 ml/min; Est GFR (African American) 126.9 ml/min; Est GFR (Non-African American) 109.5 ml/min; Magnesium 1.5 mg/dl (1.7-2.4); Potassium 3.3 mmol/L (3.5-5.1); Total Protein 6.7 gm/dl (6.0-8.3)
[2021-07-21] MEDS: PANTOprazole 40 MG in SYRINGE 0 ML IV SCH (08:40)
[2021-07-21] MEDS: FLUTICASONE PROPIONATE NA SPR 16 GM BTL NAE SCH (08:40)
[2021-07-21] MEDS ORDERED: LORATADINE 10 MG TAB PO SCH (09:00)
[2021-07-21] MEDS ORDERED: NICOTINE 21 MG/24 HR TDSY TD SCH (09:00)
[2021-07-21] MEDS ORDERED: FOLIC ACID 1 MG in SYRINGE 9.8 ML IV SCH (09:00)
[2021-07-21] MEDS ORDERED: THIAMINE HCL 100 MG in SYRINGE 9 ML IV SCH (09:00)
[2021-07-21] MEDS ORDERED: POTASSIUM CHLORIDE CRTAB 20 MEQ TABCR PO STA (11:10)
[2021-07-21] MEDS: MAGNESIUM SULFATE / D5W 1 GM/100 ML BAG IV SCH ×2 (12:03→13:42)
--- NOTE | 2021-07-21 13:34 | Discharge Summary ---
Date of Service July 21, 2021 Admission HPI Per Admitting Provider This patient is a 55-year-old male with history of alcohol use disorder and vitamin D deficiency as well as allergic rhinitis, arthritis, and folate deficiency who presents to the ER with generalized weakness, nausea/vomiting, alcohol withdrawal. He started with some cold symptoms last week and his had him take a Covid test at home which was negative. He started to reduce the amount of alcohol that he was drinking because he was not feeling well and his last drink was last night. He then has been having nausea and vomiting, sometimes with a scant amount of bright red blood in the vomit for the last several days and not able to keep anything down. He has had some intermittent epigastric abdominal pain but currently not having any. He is also been having heartburn from throwing up which is better with IV Pepcid given in the ER. He and his report that he has never had seizures before and he has managed his alcohol withdrawal at home in the past but it has been quite difficult and he typically is not able to keep anything by mouth down for several days. In the ER, he was found to be tremulous, quite anxious and emotionally labile, severely hypertensive and tachycardic. He was also found to be hypokalemic and mildly thrombocytopenic. His alcohol level was almost 300. He was treated with a banana bag, IV Ativan, IV Decadron for some wheezing, IV Pepcid, IV magnesium, Zofran normal saline, and 2 K riders. When I first came to see him, he thought he was feeling a little bit better and did tolerate some Sprite, but was agreeable to be hospitalized to ensure his hypokalemia was corrected, treat his dehydration, ensure he was able to tolerate further p.o., and for treatment of his alcohol withdrawal with benzodiazepines. 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 Principal Diagnosis Alcohol use disorder with withdrawal, hypokalemia, hypomagnesemia, alcoholic hepatitis, folate deficiency Discharge Exam Constitutional WD/WN, vitals as above Eyes + anicteric sclerae ENMT external ear and nose normal, oropharynx normal Neck trachea midline, no thyromegaly Respiratory normal respiratory effort, lungs clear to auscultation Cardiovascular Rate/Rhythm: regular rate and regular rhythm Heart Sounds: no murmur Extremities: no edema Chest (Breasts) Chest: normal inspection of chest Gastrointestinal (Abdomen) normal bowel sounds, soft, nontender, no hepatosplenomegaly Musculoskeletal Extremities: extremities normal to inspection; no cyanosis and no clubbing Skin no rashes, warm and dry Neurologic moves all extremities and awake; no focal motor deficits Psychiatric Orientation: alert and oriented x 3 Eye Contact: good eye contact Affect: + anxious affect and + tearful affect Mood: + anxious mood Lymphatic no lymphedema Discharge Data Allergies Allergy/AdvReac Type Severity Reaction Status Date / Time No Known Allergies Allergy Verified 07/20/21 09:56 Consultations 07/20/21 14:08 ED Decision to Admit Stat Hospital Course (1) Alcohol use disorder: Presents with signs and symptoms of alcohol use disorder with dependence and withdrawal Alcohol level 298 on arrival, last drink around midnight on the night of 07/19 No history of seizures but presented with significant nausea/vomiting and here with hypokalemia and significant hypertension and some tachycardia Risk is high enough that he should be hospitalized for his withdrawal He was admitted to medical floor with telemetry for arrhythmia monitoring and had sinus tachycardia which then improved -He was given IV fluids with potassium chloride and replaced magnesium and potassium as below -Started Librium taper and he had significant improvement with this-continue on discharge at 25 mg p.o. 4 times daily x1 day, then 3 times daily x1 day, then twice daily x1 day, then once daily x1 day, then stop His blood pressures improved and this did his heart rate -He only required 2 total doses of as needed IV Ativan in 24 hours -He received IV thiamine and IV folate daily and this can be converted to p.o. upon discharge - case management provided literature for options on inpatient versus outpatient alcohol rehab -PCP should consider treatment as an outpatient with naltrexone with close monitoring -Stable for discharge home (2) Nausea & vomiting: Secondary to alcohol withdrawal-now resolved with treatment of withdrawal as above Tolerating a diet Continue Protonix 40 mg once daily x2 weeks after discharge (3) Hypokalemia: Potassium 3.1 on arrival, was replaced and improved (4) Elevated blood pressure reading: Secondary to alcohol withdrawal-improved with treatment with Librium and 1 dose of IV hydralazine Treating alcohol withdrawal with benzodiazepines as above Follow-up with PCP (5) Vitamin D deficiency: Continue vitamin D supplementation (6) Folate deficiency: Recent folate level checked and was low at 3 Continue folic acid 1 mg daily replacement (7) Allergic rhinitis: Continue home Claritin and fluticasone nasal spray (8) Current smoker: Smokes 1.5 packs/day Counseled on cessation Start nicotine patch 21 mg TD once daily and continue on discharge (9) Arthralgia: Advised discontinuation of NSAIDs given high risk for PUD with heavy alcohol use Can take Tylenol as needed for pain (10) Transaminitis: Mild elevation in AST and alk phos likely secondary to fatty liver seen on CT abdomen/pelvis from 2 years ago, plus heavy alcohol use Should improve with cessation of alcohol on weight loss and low carbohydrate diet Repeat LFTs here show improvement in AST and alkaline phosphatase total bilirubin mildly elevated at 2.1 Counseled on cessation of alcohol Follow-up LFTs with PCP (11) Thrombocytopenia: Mild thrombocytopenia in the 90s, likely secondary to alcoholic liver disease Follow CBC as an outpatient (12) Asthma: Has a history of asthma, was apparently wheezing a bit on arrival and was treated with duo nebs and dexamethasone 10 mg IV x1 No longer wheezing We will hold off on any further Decadron at this time as this may exacerbate his anxiety secondary to alcohol withdrawal Not hypoxic DVT prophylaxis-SCDs Disposition-stable for discharge to home Full code Total Time Total Time Spent Total Time Spent (In Minutes): 35 minutes Discharge Plan Discharge Items Patient Disposition: Home - Self-Care Reason For Visit: ETOH WITHDRAWL, HYPOKALEMIA Discharge Diagnosis: Alcohol use disorder with withdrawal, Hypokalemia, hypomagnesemia Condition on Discharge: Fair Activity: As commented below Lifting: Gradually increase as tolerated Bathing: No limitations Exercise/Sports: Gradually increase as tolerated Driving/Machine Use: No driving while taking Librium Non-emergency contact: Primary Care Provider Call non-emergency contact if: you have any medication questions and your symptoms worsen Follow-up/Referrals: [facility],Medicine [Primary Care Provider] - (Follow up within 1 week.) Diet: Regular Addtl Attending Provider Instructions: You were admitted for alcohol withdrawal, nausea/vomiting, and had low potassium and magnesium levels. You were given IV fluids, vitamins and electrolyte replacement, and started on a taper of Librium which is a medication to help you with alcohol withdrawal. Please follow the instructions for the taper for after discharge and refrain from drinking any alcohol from here on out. Please follow-up with the outpatient alcohol use disorder clinic that you are interested in, and I encourage you to attend alcoholics anonymous meetings as well. Please talk to your primary care physician about starting on a medication that can help deter you from drinking alcohol in the future such as acamprosate or naltrexone. You do have evidence of alcoholic hepatitis on your blood work-this is reversible as long as you continue to abstain from drinking alcohol. Please have your primary care physician recheck your CBC and complete metabolic panel on blood work within 1 week. Please continue to take thiamine, and folic acid to prevent nerve damage and anemia from heavy alcohol use. You should continue on the antacid for at least 2 weeks until your stomach and esophagus issues from vomiting and acid reflux improved. Pending Studies at Discharge: No Stand-Alone Forms: [facility], Smoking Cessation Medications and DC Order Prescriptions: New nicotine [Nicoderm CQ] 21 mg/24 hr Patch 24 Hour 21 mg transdermal QAM Qty: 14 RF: 0 acetaminophen 325 mg Tablet 650 mg PO Q4H PRN (Reason: pain) Qty: 30 RF: 0 chlordiazepoxide HCl 25 mg Capsule 25 mg PO QID Qty: 10 RF: 0 pantoprazole [Protonix] 40 mg tablet,delayed release (DR/EC) 40 mg PO DAILY Qty: 14 RF: 0 thiamine HCl (vitamin B1) 100 mg tablet 100 mg PO DAILY Qty: 30 RF: 0 folic acid 1 mg tablet 1 mg PO DAILY Qty: 30 RF: 0 Continued cyanocobalamin (vitamin B-12) [Vitamin B-12] 1,000 mcg Tablet 0 mcg PO DAILY RF: 0 fluticasone propionate [Flonase] 50 mcg/actuation [place],Suspension 1 spray INTRANASAL Q12H RF: 0 loratadine [Claritin] 10 mg Tablet 10 mg PO DAILY RF: 0 cholecalciferol (vitamin D3) [Vitamin D3] 25 mcg (1,000 unit) Capsule 0 mcg PO DAILY RF: 0 Discontinued naproxen 500 mg tablet 500 mg PO BID RF: 0 Discharge Orders: Discharge Order (Routine); Ordered 07/21/21 Ordered By: Cheryle Cabrera Admission Data Admit Date/Time: 07/20/21 16:28 Attending Provider: Cheryle Cabrera Admit Provider: Cheryle Cabrera Primary Care Provider: [facility] Other Providers: Cheryle Cabrera Coding Level of Care Code D/C DAY MANAGEMENT >30 MINS Diagnoses Alcohol use disorder Nausea & vomiting R11.2 Hypokalemia E87.6 Elevated blood pressure reading R03.0 Vitamin D deficiency E55.9 Folate deficiency E53.8 Allergic rhinitis J30.9 Current smoker F17.200 Arthralgia M25.50 Transaminitis R74.01 Thrombocytopenia D69.6 Asthma J45.909
[2021-07-23] MEDS ORDERED: chlordiazePOXIDE HCl 5 MG CAP PO SCH (16:30)
== END 2021-07-21 15:15 | disposition home or self-care (01) | DRG 897 ==
LOC: ED 08:14 → EDINP 16:28 → 2W 20:17

== ENCOUNTER 2023-10-22 20:29 | Inpatient (IN) ==
[2023-10-22] MEDS: OPTIRAY 320 125ml IV ONE (20:57)
[2023-10-22 21:00] LABS: iSTAT Blood Urea Nitrogen < 3 mg/dl (7-18); iSTAT Carbon Dioxide 24 mmol/L (24-31); iSTAT Chloride 103 mmol/L (101-112); iSTAT Creatinine 1.2 mg/dl (0.6-1.3); iSTAT Glucose 142 mg/dl (70-99); iSTAT Hematocrit 51 % (42-52); iSTAT Hemoglobin 17.3 g/dl (14.0-18.0); iSTAT Ionized Calcium 0.98 mmol/l (1.12-1.32); iSTAT Potassium 3.4 mmol/L (3.3-5.0); iSTAT Sodium 141 mmol/L (135-144)
--- NOTE | 2023-10-22 21:02 | Emergency Department Note ---
Impression & Plan Acute CVA (cerebrovascular accident), Non-ST elevation CA (NSTEMI), Alcohol intoxication ED Provider Note HISTORY OF PRESENT ILLNESS: Patient is a 58-year-old male presenting with slurred speech and left-sided facial droop. Patient's last saw him well at 8:30 AM this morning when she left to go to an appointment. She came back at 1900 this evening and found the patient to have a left-sided facial droop and slurred speech. Patient has a history of alcoholism and reports has been drinking all afternoon. He normally drinks 8-10 shots of hard liquor a day. He reports he was trying to quit drinking over the last few days, but he became very tremulous and had withdrawal symptoms, so he started drinking again today. Denies any chest pain or shortness of breath. ROS: as above PHYSICAL EXAM: Constitutional: Patient appears in no acute distress. Patient smells strongly of alcohol. He intermittently starts crying on assessment. HENT: Head: Normocephalic and atraumatic. Eyes: EOMI, PERRL Mouth/Throat: Mucous membranes moist. Neck: Trachea midline. Neck supple. Cardiovascular: Tachycardic with regular rhythm. No murmurs, rubs or gallops. Intact distal pulses. Pulmonary/Chest: No respiratory distress. Breath sounds clear and equal bilaterally. No wheezes or rales. Abdominal: Abdomen soft, no tenderness, rebound or guarding. Musculoskeletal: No edema, tenderness or deformity noted. Skin: Warm and dry. No rash, erythema, pallor or cyanosis Psychiatric: Appropriate mood and affect for situation. Neurological: Alert and oriented. Slurred speech. Patient has difficulties following more than two-step commands. Strength 5 out of 5 in bilateral upper and lower extremities. Slight left-sided facial droop. MDM: - Vitals signs showed hypertension, tachycardia and hypoxia. - History obtained via patient's , given patient's slurred speech. History as above. - Chronic conditions affecting care: alcohol use disorder; anxiety; thrombocytopenia - Differential diagnoses include, but are not limited to: intoxication; electrolyte abnormality; ACS; dysrhythmia; CVA; intracranial hemorrhage - Order placed for continuous cardiac monitoring. At this time, monitor showed rate of 87 bpm with normal sinus rhythm, per my interpretation. - External medical records reviewed. Discharge summary dated 07/21/2021 was reviewed. Patient was admitted at that time for alcohol use disorder with withdrawal. - Patient's last known well was 8:30 AM today. He is outside the TNK window. However, he is still a candidate for thrombectomy, so he was alerted as a stroke alert in triage. - Patient's NIHSS is difficult to assess, as he has difficulties following more than 1 step commands and communicating. Unclear if this is secondary to his intoxication or stroke. - EKG interpreted by myself showed normal sinus rhythm. Rate 88 bpm. QT 376. No acute ischemic changes. - Laboratory workup interpreted by myself showed normal WBC; normal PT/INR; slight hyponatremia (Na 3.3); elevated anion gap (13); slight hyperglycemia (glucose 141); elevated troponin (21); normal BNP; elevated alcohol (352.1) - CXR negative for pneumonia, per my interpretation - CT head wo contrast negative for acute intracranial pathology - CTA head/neck noted to have a short segment right M2 branch occlusion in the sylvian fissure. Occluded segment measures 0.3 cm in length. - Discussed case with [facility] teleneurologist, Dr. Clifton, at 21:43. He is signing into the telestroke cart to evaluate the patient. - Stroke physician, Dr. Clifton, reconnected with me at 2206. He reports that he discussed the case with the interventional neurologist at [facility]. They report that the patient is "too mild for thrombectomy" at this point. They do report that the patient has the potential to get worse and if he does get worse, he is a candidate for thrombectomy. It is recommended that the patient be admitted to the ICU for every hour neuro checks for 24 hours. If the patient has worsening of his symptoms, [facility] stroke team should be contacted again for potential transfer and thrombectomy. Dr. Clifton recommended loading the patient with 81 mg aspirin and 300 mg of Plavix. Instructed that patient should be given permissive hypertension. - 81 mg PO aspirin ordered. 300 mg PO plavix ordered. - Discussion was had with adult protective caseworker about patient's case and need for admission - Hospitalist consulted for admission - Patient admitted to [facility] service for further evaluation and management. I have personally spent 34 minutes of critical care time in the direct management of this patient. This includes bedside care, interpretation of diagnostic studies, and testing, discussion with consultants, patient, and family members, and other required patient management activities. This 34 minutes is in excess of all separately billable procedures. ASSESSMENT AND PLAN: Diagnosis: acute CVA; alcohol intoxication; NSTEMI Plan: admit Past Med/Surg History Problem List (Updated 10/22/23 @ 23:03 by Kristen Martines MD) Alcohol intoxication (Acute) Non-ST elevation CA (NSTEMI) (Acute) Acute CVA (cerebrovascular accident) (Acute) Low serum magnesium level (Acute) Hypokalemia (Acute) Alcohol withdrawal (Acute) Asthma Thrombocytopenia Transaminitis Allergic rhinitis Folate deficiency Elevated blood pressure reading Current smoker Alcohol use disorder Arthralgia (Chronic) Dysphagia EtOH dependence (Chronic) H/O syncope Vitamin D deficiency Anxiety (Chronic) Insomnia (Acute) Right shoulder pain (Acute) Medical History Alcohol abuse Surgical History History of repair of rotator cuff History of appendectomy Family History (Updated 07/20/21 @ 16:39 by Cheryle Cabrera MD) Other Family history non-contributory Family history unknown Social History Smoking Status: Current every day smoker Tobacco Type: Cigarettes packs per day: 1.5; Hx Alcohol Use: Yes Alcohol type: hard liquor Alcohol Intake Frequency: 4 or More x per/Week Alcohol Intake Frequency Comment: 6 shots of liquor daily Hx Substance Use: No Preferred Language: Armenian Communication Ability: Effective Visual Impairment: No Limitations Hearing Ability: Normal Management Engineer Required: No Beliefs That Will Affect Care: None marital status: Current Living Situation: Spouse current occupational status: employed 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 Feels Safe at Home: Yes Dental Care, Regularly: Yes Physical Activity Frequency: Does not Exercise Assistive Devices: None Allergies Allergies Allergy/AdvReac Type Severity Reaction Status Date / Time No Known Allergies Allergy Verified 10/22/23 20:54 Home Meds Home Medications Medication Instructions Recorded Confirmed acetaminophen 650 mg 1,300 mg PO BID 10/22/23 10/22/23 tablet,extended release (Tylenol Arthritis Pain) multivitamin 1 tab PO DAILY 10/22/23 10/22/23 Previous Rx's Medication Instructions Recorded pantoprazole 40 mg tablet,delayed 40 mg PO DAILY #14 tabs 07/21/21 release (Protonix) Results & Data (ED) Vital Signs Vital Signs - 24 hr 10/22/23 20:32 10/22/23 21:00 10/22/23 21:00 Temperature 36.5 C Temperature Source Temporal Artery Scan Pulse Rate 110 H Pulse Rate [Apical] 90 88 Pulse Rate from SpO2 Sensor Pulse Rhythm Pulse Rhythm [Apical] Regular Pulse Strength [Apical] Normal Respiratory Rate 18 18 20 Respiratory Effort / Characteristics Non-Labored Spontaneous Non-Labored Spontaneous Respiratory Depth Normal Normal Respiratory Pattern Regular Blood Pressure 145/102 H Blood Pressure [Right Arm] 150/103 H 149/90 H Blood Pressure Mean 116 Blood Pressure Mean [Right Arm] 118 109 Blood Pressure Position Sitting Blood Pressure Position [Right Arm] Semi-fowlers Pulse Oximetry 88 L 92 94 Oxygen Delivery Method Room Air Room Air Room Air Oxygen Flow Rate Sepsis Recent Fever Within 48 Hours No Sepsis New/Unexplained Change in Mental Status N/A Sepsis Action Taken by Nursing No Action Required 10/22/23 21:03 10/22/23 21:05 10/22/23 21:05 Temperature Temperature Source Pulse Rate 85 93 H Pulse Rate [Apical] Pulse Rate from SpO2 Sensor Pulse Rhythm Regular Pulse Rhythm [Apical] Pulse Strength [Apical] Respiratory Rate 16 Respiratory Effort / Characteristics Respiratory Depth Respiratory Pattern Blood Pressure Blood Pressure [Right Arm] Blood Pressure Mean Blood Pressure Mean [Right Arm] Blood Pressure Position Blood Pressure Position [Right Arm] Pulse Oximetry 94 94 Oxygen Delivery Method Room Air Room Air Oxygen Flow Rate 0 Sepsis Recent Fever Within 48 Hours Sepsis New/Unexplained Change in Mental Status Sepsis Action Taken by Nursing 10/22/23 21:42 10/22/23 22:00 10/22/23 22:00 Temperature Temperature Source Pulse Rate 65 87 Pulse Rate [Apical] 85 Pulse Rate from SpO2 Sensor 69 84 Pulse Rhythm Pulse Rhythm [Apical] Regular Pulse Strength [Apical] Normal Respiratory Rate 16 18 16 Respiratory Effort / Characteristics Non-Labored Spontaneous Respiratory Depth Normal Respiratory Pattern Regular Blood Pressure Blood Pressure [Right Arm] 139/110 H Blood Pressure Mean Blood Pressure Mean [Right Arm] 119 Blood Pressure Position Blood Pressure Position [Right Arm] Semi-fowlers Pulse Oximetry 92 97 97 Oxygen Delivery Method Room Air Oxygen Flow Rate Sepsis Recent Fever Within 48 Hours Sepsis New/Unexplained Change in Mental Status Sepsis Action Taken by Nursing 10/22/23 22:00 Temperature Temperature Source Pulse Rate Pulse Rate [Apical] Pulse Rate from SpO2 Sensor Pulse Rhythm Pulse Rhythm [Apical] Pulse Strength [Apical] Respiratory Rate Respiratory Effort / Characteristics Respiratory Depth Respiratory Pattern Blood Pressure 139/110 H Blood Pressure [Right Arm] Blood Pressure Mean 124 Blood Pressure Mean [Right Arm] Blood Pressure Position Blood Pressure Position [Right Arm] Pulse Oximetry Oxygen Delivery Method Oxygen Flow Rate Sepsis Recent Fever Within 48 Hours Sepsis New/Unexplained Change in Mental Status Sepsis Action Taken by Nursing Laboratory Data 10/22/23 20:43 10/22/23 20:43 Lab Results 10/22/23 10/22/23 10/22/23 Range/Units 20:43 20:47 20:57 WBC 9.83 (4.8-10.8) K/ul RBC 5.14 (4.70-6.10) M/uL Hgb 17.4 (14.0-18.0) g/dl POC Hgb 17.3 (14.0-18.0) g/dl Hct 48.9 (42.0-52.0) % POC Hct 51 (42-52) % MCV 95.1 (80.0-100.0) fL MCH 33.9 (25.0-34.0) pg MCHC 35.6 (32.0-36.0) g/dL RDW Std Deviation 47.2 H (36.4-46.3) fL RDW Coeff of Chung 13.4 (11.5-14.5) % Plt Count 355 (130-400) K/uL MPV 9.9 (9.4-12.4) fL PT 11.9 (9.0-12.0) Seconds INR 1.1 (0.9-1.1) APTT 25 (21-31) Seconds PTT Ratio 0.9 POC Sodium 141 (135-144) mmol/L Sodium 140 (136-145) mmol/L POC Potassium 3.4 (3.3-5.0) mmol/L Potassium 3.3 L (3.5-5.1) mmol/L POC Chloride 103 (101-112) mmol/L Chloride 104 (98-107) mmol/L Carbon Dioxide 23 (21-32) mmol/L POC Total CO2 24 (24-31) mmol/L Anion Gap 13 H (3-11) POC Anion Gap 19.0 (16-25) mmol/L POC BUN < 3 L (7-18) mg/dl BUN 3 L (6-23) mg/dl Creatinine 0.83 (0.6-1.4) mg/dl POC Creatinine 1.2 (0.6-1.3) mg/dl Est Cr Clr Drug Dosing 105.2 ml/min Est GFR ( Amer) 111.6 ml/min Est GFR (Non-Af Amer) 96.3 ml/min BUN/Creatinine Ratio 3.6 L (10-20) Glucose 141 H (70-99(Fasting)) mg/dl POC Glucose 131 H (70-99) mg/dl POC Glucose (other) 142 H (70-99) mg/dl Calcium 8.9 (8.6-10.3) mg/dl POC Ioniz Calcium Omayra 0.98 L (1.12-1.32) mmol/l Magnesium 1.9 (1.7-2.4) mg/dl Total Bilirubin 0.7 (0.2-1.0) mg/dl AST 36 (13-39) U/L ALT 29 (7-52) U/L Alkaline Phosphatase 69 (34-104) U/L Troponin I High Sens 21.0 H (0-20) pg/ml B-Natriuretic Peptide 9 (0-100) pg/ml Total Protein 7.9 (6.0-8.3) gm/dl Albumin 4.0 (3.4-5.0) gm/dl Globulin 3.9 (2.5-4.0) gm/dl Albumin/Globulin Ratio 1.0 (0.9-2) Ethyl Alcohol mg/dL (<10.0) mg/dl 10/22/23 Range/Units 21:00 WBC (4.8-10.8) K/ul RBC (4.70-6.10) M/uL Hgb (14.0-18.0) g/dl POC Hgb (14.0-18.0) g/dl Hct (42.0-52.0) % POC Hct (42-52) % MCV (80.0-100.0) fL MCH (25.0-34.0) pg MCHC (32.0-36.0) g/dL RDW Std Deviation (36.4-46.3) fL RDW Coeff of Chung (11.5-14.5) % Plt Count (130-400) K/uL MPV (9.4-12.4) fL PT (9.0-12.0) Seconds INR (0.9-1.1) APTT (21-31) Seconds PTT Ratio POC Sodium (135-144) mmol/L Sodium (136-145) mmol/L POC Potassium (3.3-5.0) mmol/L Potassium (3.5-5.1) mmol/L POC Chloride (101-112) mmol/L Chloride (98-107) mmol/L Carbon Dioxide (21-32) mmol/L POC Total CO2 (24-31) mmol/L Anion Gap (3-11) POC Anion Gap (16-25) mmol/L POC BUN (7-18) mg/dl BUN (6-23) mg/dl Creatinine (0.6-1.4) mg/dl POC Creatinine (0.6-1.3) mg/dl Est Cr Clr Drug Dosing ml/min Est GFR ( Amer) ml/min Est GFR (Non-Af Amer) ml/min BUN/Creatinine Ratio (10-20) Glucose (70-99(Fasting)) mg/dl POC Glucose (70-99) mg/dl POC Glucose (other) (70-99) mg/dl Calcium (8.6-10.3) mg/dl POC Ioniz Calcium Omayra (1.12-1.32) mmol/l Magnesium (1.7-2.4) mg/dl Total Bilirubin (0.2-1.0) mg/dl AST (13-39) U/L ALT (7-52) U/L Alkaline Phosphatase (34-104) U/L Troponin I High Sens (0-20) pg/ml B-Natriuretic Peptide (0-100) pg/ml Total Protein (6.0-8.3) gm/dl Albumin (3.4-5.0) gm/dl Globulin (2.5-4.0) gm/dl Albumin/Globulin Ratio (0.9-2) Ethyl Alcohol mg/dL 352.1 H (<10.0) mg/dl Administered Medications Discontinued Medications Aspirin (Aspirin Chew 324 Mg) 81 mg PO NOW STA Stop: 10/22/23 22:11 Last Admin: 10/22/23 22:31 Dose: 81 mg Documented By: SUNG Clopidogrel Bisulfate (Clopidogrel Bisulfate 300 Mg Tab) 300 mg PO NOW STA Stop: 10/22/23 22:11 Last Admin: 10/22/23 22:31 Dose: 300 mg Documented By: SUNG Ioversol (Optiray 320 125ml) 120 ml IV ONCE ONE Stop: 10/22/23 20:58 Last Admin: 10/22/23 20:57 Dose: 120 ml Documented By: ELIANE Imaging Data Radiologist's Impression: Head CT 10/22/23 20:36 CR Exam(s): CT HEAD Without Contrast EXAM: CT Head Without Intravenous Contrast CLINICAL HISTORY: Reason for exam: Neuro deficit, acute, stroke suspected. TECHNIQUE: Axial computed tomography images of the head/brain without intravenous contrast. CTDI is 43.68 mGy and DLP is 774.27 mGy-cm. Automated exposure control was utilized for the study. A dose lowering technique was utilized adhering to the principles of ALARA. COMPARISON: No relevant prior studies available. FINDINGS: Limitations: Motion. Brain: Cortical cerebral volume loss. Snyder-white matter differentiation maintained. No hemorrhage, mass-effect, or midline shift. No significant white matter disease. Ventricles: Unremarkable. No hydrocephalus. Bones/joints: Unremarkable. No acute fracture. Soft tissues: Unremarkable. Sinuses: Unremarkable as visualized. Mastoid air cells: Unremarkable as visualized. No mastoid effusion. IMPRESSION: Limited by motion. No acute intracranial findings as visualized. Communications: Call Doctor Stroke Electronically signed by: Ashlyn Goddard M.D. 10/22/23 21:24 PM Head CTA 10/22/23 20:40 CR Exam(s): CTA HEAD With Contrast IV Amt: 120 ml optiray 320 EXAM: CT Angiography Head With Intravenous Contrast CLINICAL HISTORY: Reason for exam: stroke. TECHNIQUE: Axial computed tomographic angiography images of the head with intravenous contrast. CTDI is 43.68 mGy and DLP is 774.27 mGy-cm. Automated exposure control was utilized for the study. A dose lowering technique was utilized adhering to the principles of ALARA. MIP reconstructed images were created and reviewed. CONTRAST: Patient received 120 ml optiray 320 of IV contrast COMPARISON: No relevant prior studies available. FINDINGS: Right internal carotid artery: No acute findings. Intracranial segment is patent with no significant stenosis. No aneurysm. Right anterior cerebral artery: Unremarkable. No occlusion or significant stenosis. No aneurysm. Right middle cerebral artery: Short segment right M2 branch occlusion in the sylvian fissure with immediate distal reconstitution (series 9, images 96-103; series 901, image 26). Occluded segment measures approximately 0.3 cm in length. Right M1 segment and remaining right M2 segments appear adequately patent. No aneurysm. 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 No occlusion or significant stenosis. No aneurysm. Right vertebral artery: Unremarkable as visualized. Left internal carotid artery: No acute findings. Intracranial segment is patent with no significant stenosis. No aneurysm. Left anterior cerebral artery: Unremarkable. No occlusion or significant stenosis. No aneurysm. Left middle cerebral artery: Unremarkable. No occlusion or significant stenosis. No aneurysm. Left posterior cerebral artery: Unremarkable. No occlusion or significant stenosis. No aneurysm. Left vertebral artery: Unremarkable as visualized. Basilar artery: Unremarkable. No occlusion or significant stenosis. No aneurysm. IMPRESSION: Short segment right M2 branch occlusion in the sylvian fissure with immediate distal reconstitution (series 9, images 96-103; series 901, image 26). Occluded segment measures approximately 0.3 cm in length. Communications: Call Doctor Stroke Electronically signed by: Ashlyn Goddard M.D. 10/22/23 21:32 PM Neck CTA 10/22/23 20:40 CR Exam(s): CTA NECK With Contrast IV Amt: 120 ml optiray 320 EXAM: CT Angiography Neck With Intravenous Contrast CLINICAL HISTORY: Reason for exam: stroke. TECHNIQUE: Routine carotid CT angiography protocol was performed with intravenous contrast. NASCET criteria using the distal ICAs for comparison were used for evaluation of stenoses. CTDI is 38.46 mGy and DLP is 538.21 mGy-cm. Automated exposure control was utilized for the study. A dose lowering technique was utilized adhering to the principles of ALARA. MIP reconstructed images were created and reviewed. CONTRAST: Patient received 120 ml optiray 320 of IV contrast COMPARISON: None. FINDINGS: VASCULATURE: Right common carotid artery: Unremarkable. No occlusion or significant stenosis. No dissection. Right internal carotid artery: Unremarkable. Extracranial segment is patent with no occlusion or significant stenosis. No dissection. Right external carotid artery: Unremarkable. No occlusion. Right vertebral artery: Unremarkable. No occlusion or significant stenosis. No dissection. Left common carotid artery: Unremarkable. No occlusion or significant stenosis. No dissection. Left internal carotid artery: Unremarkable. Extracranial segment is patent with no occlusion or significant stenosis. No dissection. Left external carotid artery: Unremarkable. No occlusion. Left vertebral artery: Unremarkable. No occlusion or significant stenosis. No dissection. Aorta: Four-vessel aortic arch branch anatomy with direct origin of the left vertebral artery from the arch. NECK: Bones/joints: Unremarkable. No acute fracture. Soft tissues: Unremarkable. Lung apices: Clear. CAROTID STENOSIS REFERENCE USING NASCET CRITERIA: % ICA stenosis = (1 - narrowest ICA diameter/diameter of distal cervical ICA) x 100. Mild - <50% stenosis. Moderate - 50-69% stenosis. Severe - 70-94% stenosis. Near occlusion - 95-99% stenosis. Occluded - 100% stenosis. IMPRESSION: No dissection, hemodynamically significant stenosis, or occlusion. Communications: Call Doctor Stroke Electronically signed by: Ashlyn Goddard M.D. 10/22/23 21:26 PM Discharge Plan Visit Data Chief Complaint: Stroke Alert Stated Complaint: LT SIDE FACE NUMBNESS/DROOPY,LOSS MOVEMENT LT HAND ED Provider: Kristen Martines Discharge Problem: Acute CVA (cerebrovascular accident), Non-ST elevation CA (NSTEMI), Alcohol intoxication Forms Stand Alone Forms: My [employer] Prescriptions Prescriptions: No Action pantoprazole [Protonix] 40 mg tablet,delayed release (DR/EC) 40 mg PO DAILY Qty: 14 0RF multivitamin Tablet 1 tab PO DAILY acetaminophen [Tylenol Arthritis Pain] 650 mg Tablet Extended Release 1,300 mg PO BID Referrals Referrals: [facility],Medicine [Primary Care Provider] -
[2023-10-22 21:09] LABS: Hematocrit (blood only) 48.9 % (42.0-52.0); Hemoglobin 17.4 g/dl (14.0-18.0); Mean Corpuscular Hemoglobin 33.9 pg (25.0-34.0); Mean Corpuscular Hgb Conc 35.6 g/dL (32.0-36.0); Mean Corpuscular Volume 95.1 fL (80.0-100.0); Mean Platelet Volume 9.9 fL (9.4-12.4); Platelet Count 355 K/uL (130-400); RDW Coefficient of Variation 13.4 % (11.5-14.5); RDW Standard Deviation 47.2 fL (36.4-46.3); Red Blood Count 5.14 M/uL (4.70-6.10); White Blood Count 9.83 K/ul (4.8-10.8)
[2023-10-22 21:16] LABS: BUN Creatinine Ratio 3.6 (10-20); Bilirubin,Total 0.7 mg/dl (0.2-1.0); Calcium 8.9 mg/dl (8.6-10.3); Creatinine Clr Calc Pharmacy 105.2 ml/min; Est GFR (African American) 111.6 ml/min; Est GFR (Non-African American) 96.3 ml/min; Globulin 3.9 gm/dl (2.5-4.0); Magnesium 1.9 mg/dl (1.7-2.4); Potassium 3.3 mmol/L (3.5-5.1); Total Protein 7.9 gm/dl (6.0-8.3)
--- NOTE | 2023-10-22 21:25 | CT Scan Report ---
Exam(s): CT HEAD Without Contrast EXAM: CT Head Without Intravenous Contrast CLINICAL HISTORY: Reason for exam: Neuro deficit, acute, stroke suspected. TECHNIQUE: Axial computed tomography images of the head/brain without intravenous contrast. CTDI is 43.68 mGy and DLP is 774.27 mGy-cm. Automated exposure control was utilized for the study. A dose lowering technique was utilized adhering to the principles of ALARA. COMPARISON: No relevant prior studies available. FINDINGS: Limitations: Motion. Brain: Cortical cerebral volume loss. Snyder-white matter differentiation maintained. No hemorrhage, mass-effect, or midline shift. No significant white matter disease. Ventricles: Unremarkable. No hydrocephalus. Bones/joints: Unremarkable. No acute fracture. Soft tissues: Unremarkable. Sinuses: Unremarkable as visualized. Mastoid air cells: Unremarkable as visualized. No mastoid effusion. IMPRESSION: Limited by motion. No acute intracranial findings as visualized. Communications: Call Doctor Stroke Electronically signed by: Ashlyn Goddard M.D. 10/22/23 21:24 PM
--- NOTE | 2023-10-22 21:26 | CT Scan Report ---
Exam(s): CTA NECK With Contrast IV Amt: 120 ml optiray 320 EXAM: CT Angiography Neck With Intravenous Contrast CLINICAL HISTORY: Reason for exam: stroke. TECHNIQUE: Routine carotid CT angiography protocol was performed with intravenous contrast. NASCET criteria using the distal ICAs for comparison were used for evaluation of stenoses. CTDI is 38.46 mGy and DLP is 538.21 mGy-cm. Automated exposure control was utilized for the study. A dose lowering technique was utilized adhering to the principles of ALARA. MIP reconstructed images were created and reviewed. CONTRAST: Patient received 120 ml optiray 320 of IV contrast COMPARISON: None. FINDINGS: VASCULATURE: Right common carotid artery: Unremarkable. No occlusion or significant stenosis. No dissection. Right internal carotid artery: Unremarkable. Extracranial segment is patent with no occlusion or significant stenosis. No dissection. Right external carotid artery: Unremarkable. No occlusion. Right vertebral artery: Unremarkable. No occlusion or significant stenosis. No dissection. Left common carotid artery: Unremarkable. No occlusion or significant stenosis. No dissection. Left internal carotid artery: Unremarkable. Extracranial segment is patent with no occlusion or significant stenosis. No dissection. Left external carotid artery: Unremarkable. No occlusion. Left vertebral artery: Unremarkable. No occlusion or significant stenosis. No dissection. Aorta: Four-vessel aortic arch branch anatomy with direct origin of the left vertebral artery from the arch. NECK: Bones/joints: Unremarkable. No acute fracture. Soft tissues: Unremarkable. Lung apices: Clear. CAROTID STENOSIS REFERENCE USING NASCET CRITERIA: % ICA stenosis = (1 - narrowest ICA diameter/diameter of distal cervical ICA) x 100. Mild - <50% stenosis. Moderate - 50-69% stenosis. Severe - 70-94% stenosis. Near occlusion - 95-99% stenosis. Occluded - 100% stenosis. IMPRESSION: No dissection, hemodynamically significant stenosis, or occlusion. Communications: Call Doctor Stroke Electronically signed by: Ashlyn Goddard M.D. 10/22/23 21:26 PM
--- NOTE | 2023-10-22 21:33 | CT Scan Report ---
Exam(s): CTA HEAD With Contrast IV Amt: 120 ml optiray 320 EXAM: CT Angiography Head With Intravenous Contrast CLINICAL HISTORY: Reason for exam: stroke. TECHNIQUE: Axial computed tomographic angiography images of the head with intravenous contrast. CTDI is 43.68 mGy and DLP is 774.27 mGy-cm. Automated exposure control was utilized for the study. A dose lowering technique was utilized adhering to the principles of ALARA. MIP reconstructed images were created and reviewed. CONTRAST: Patient received 120 ml optiray 320 of IV contrast COMPARISON: No relevant prior studies available. FINDINGS: Right internal carotid artery: No acute findings. Intracranial segment is patent with no significant stenosis. No aneurysm. Right anterior cerebral artery: Unremarkable. No occlusion or significant stenosis. No aneurysm. Right middle cerebral artery: Short segment right M2 branch occlusion in the sylvian fissure with immediate distal reconstitution (series 9, images 96-103; series 901, image 26). Occluded segment measures approximately 0.3 cm in length. Right M1 segment and remaining right M2 segments appear adequately patent. No aneurysm. Right posterior cerebral artery: origin of the right MICRO PALEONTOLOGIST. No occlusion or significant stenosis. No aneurysm. Right vertebral artery: Unremarkable as visualized. Left internal carotid artery: No acute findings. Intracranial segment is patent with no significant stenosis. No aneurysm. Left anterior cerebral artery: Unremarkable. No occlusion or significant stenosis. No aneurysm. Left middle cerebral artery: Unremarkable. No occlusion or significant stenosis. No aneurysm. Left posterior cerebral artery: Unremarkable. No occlusion or significant stenosis. No aneurysm. Left vertebral artery: Unremarkable as visualized. Basilar artery: Unremarkable. No occlusion or significant stenosis. No aneurysm. IMPRESSION: Short segment right M2 branch occlusion in the sylvian fissure with immediate distal reconstitution (series 9, images 96-103; series 901, image 26). Occluded segment measures approximately 0.3 cm in length. Communications: Call Doctor Stroke Electronically signed by: Ashlyn Goddard M.D. 10/22/23 21:32 PM
[2023-10-22 21:49] LABS: INR 1.1 (0.9-1.1); Partial Thromboplastin Ratio 0.9; Partial Thromboplastin Time 25 Seconds (21-31); Prothrombin Time 11.9 Seconds (9.0-12.0)
[2023-10-22] MEDS: CLOPIDOGREL BISULFATE 300 MG TAB PO STA (22:31)
[2023-10-22] MEDS: ASPIRIN CHEW 324 MG PO STA (22:31)
--- NOTE | 2023-10-22 23:30 | History & Physical Report ---
Date of Service October 22, 2023 Assessment & Plan (1) Acute CVA (cerebrovascular accident): Plan: 58yo male with history of EtOH abuse presenting with acute CVA. Patient found to have subtle punctate foci of possible diffusion restriction concerning for acute cerebral ischemia. Also with M2 occlusion noted on CTA with distal reconstitution. Patient has been loaded with ASA and Plavix. He reports that his symptoms are improving slightly. Case discussed with ER and Neurology from [place] - patient unfortunately out of the window for tPA. No vascular intervention at this time given patient's low NIH score and improvement. Should patient decline or have worsening neurologic status he will be transferred to [facility] for thrombectomy. -Will admit to MICU for now for q 1 hour Neuro checks -Continue ASA 81mg po daily and Plavix 75mg po daily -Check HgbA1C and Lipid panel -Atorvastatin 40mg po daily -Check 2D echo -Neurology consultation appreciated -PT/OT evaluation (2) Alcohol intoxication: Plan: Patient with daily EtoH consumption. High risk for withdrawal. Will likely complicate Neurologic assessments if he is being administered benzos -Banana bag given -Thiamine and folic acid daily -AWSS per protocol History of Present Illness Chief Complaint: stroke-like symptoms Primary Care Provider: [facility] Johnathon Estevez is a 58yo male with history of asthma and EtOH abuse presenting with stroke-like symptoms. Patient was last seen normal by his today 10/22/23 at 08:30. She then left for a doctor's appointment. Patient reports that he went to the store in the late morning and when he returned from the store he was having a difficult time holding things with his left hand - this was around 11:00 - 12:00. Patient called his sister around 13:00 and was reportedly not speaking clearly so his sister called his . His called him and reported that his speech was slurred - she thinks that he sounded drunk on the phone. Patient's saw him around 17:30 and patient had a left facial droop and was having difficulty holding anything with his left hand. They came to the ER due to concern for stroke. Patient denies headache or visual changes. Denies chest pain, cough, SOB or palpitations. No abdominal pain, nausea, vomiting. He feels that his symptoms are somewhat improving - able to grasp with his left hand currently In regards to Mr. Mcgowan's EtOH intake. He drinks 8-10 shots of Goldschlager daily. He occasional tries to quit drinking "cold turkey" then develops withdrawal symptoms and binge drinks. He does not consider himself and alcoholic. He drank 10 shots today - last drink at 17:30 states that he has not eaten or had anything to drink for 3 days ER Course: ASA 81 + 243 Plavix 300mg Banana bag Allergies Allergy/AdvReac Type Severity Reaction Status Date / Time No Known Allergies Allergy Verified 10/22/23 20:54 Home Medications Medication Instructions Recorded Confirmed Type pantoprazole 40 mg tablet,delayed 40 mg PO DAILY #14 tabs 07/21/21 10/22/23 Rx release (Protonix) acetaminophen 650 mg 1,300 mg PO BID 10/22/23 10/22/23 History tablet,extended release (Tylenol Arthritis Pain) multivitamin 1 tab PO DAILY 10/22/23 10/22/23 History Past Med/Surg History Problem List Alcohol intoxication (Acute) Non-ST elevation [place] (NSTEMI) (Acute) Acute CVA (cerebrovascular accident) (Acute) Low serum magnesium level (Acute) Hypokalemia (Acute) Alcohol withdrawal (Acute) Asthma Thrombocytopenia Transaminitis Allergic rhinitis Folate deficiency Elevated blood pressure reading Current smoker Alcohol use disorder Arthralgia (Chronic) Dysphagia EtOH dependence (Chronic) H/O syncope Vitamin D deficiency Anxiety (Chronic) Insomnia (Acute) Right shoulder pain (Acute) Medical History Alcohol abuse Surgical History History of repair of rotator cuff History of appendectomy Family History Other Family history non-contributory Family history unknown Social History Smoking Status: Current every day smoker Tobacco Type: Cigarettes packs per day: 1.5; Cigarettes Per Day: 1.5 packs/day; Hx Alcohol Use: Yes Alcohol type: hard liquor Alcohol Intake Frequency: 4 or More x per/Week Alcohol Intake Frequency Comment: 6 shots of liquor daily Hx Substance Use: Yes Last Used Substance: Hours (ago) Preferred Language: [place]i Communication Ability: Effective Visual Impairment: No Limitations Hearing Ability: Normal Repairer Cylinder Heads Required: No Beliefs That Will Affect Care: None marital status: Current Living Situation: Spouse current occupational status: employed current occupation: [employer] Other Information That Helps Us Care for You: No Feels Safe at Home: Yes Safety Concerns: Feels Safe At This Time Dental Care, Regularly: Yes Physical Activity Frequency: Does not Exercise Assistive Devices: None Review of Systems Review of Systems: All systems reviewed & are unremarkable except as noted in HPI & below Physical Exam Physical Exam: General: patient intoxicated, smells of EtOH, emotional during encounter crying several times Skin: warm, dry, intact, no rashes or lesions HEENT: NC/AT, PERRL, EOMI, anicteric sclera, conjunctiva without injection, external ear normal to inspection and nontender, nares patent, moist mucus membranes, dentition intact, no oropharyngeal lesions, neck supple, trachea midline, no LAD, no thyromegaly, no JVD Heart: +S1/S2, regular, no m/r/g Lungs: equal air entry bilaterally, no rales/rhonchi/wheezes Abd: +BS, soft, NT/ND, no masses/organomegaly/ascites Ext: warm, 2+ pulses in UE/LE bilaterally, no clubbing/cyanosis or edema Neuro: AA&O, speech slurred, left facial droop, diminished sensation to light tough on left face, arm and leg, MS 4/5 in LUE with pronator drift, MS 5/5 in RUE, RLE and LLE. +Nystagmus and dysmetria noted on finger to nose, gait not assessed Results & Data Results & Data Vital Signs (Past 12 Hours) Vital Signs Temp Pulse Pulse Resp BP BP Pulse Ox 10/22/23 23:15 92 H 19 95 10/22/23 23:01 154/113 H 10/22/23 23:00 85 20 93 10/22/23 22:51 64 19 97 10/22/23 22:48 74 14 95 10/22/23 22:00 139/110 H 10/22/23 22:00 87 16 97 10/22/23 22:00 85 18 139/110 H 97 10/22/23 21:42 65 16 92 10/22/23 21:05 93 H 16 94 10/22/23 21:05 94 10/22/23 21:03 85 10/22/23 21:00 88 20 149/90 H 94 10/22/23 21:00 90 18 150/103 H 92 10/22/23 20:32 36.5 C 110 H 18 145/102 H 88 L O2 Del Method O2 Flow Rate 10/22/23 23:15 10/22/23 23:01 10/22/23 23:00 10/22/23 22:51 10/22/23 22:48 10/22/23 22:00 10/22/23 22:00 10/22/23 22:00 Room Air 10/22/23 21:42 10/22/23 21:05 Room Air 10/22/23 21:05 Room Air 0 10/22/23 21:03 10/22/23 21:00 Room Air 10/22/23 21:00 Room Air 10/22/23 20:32 Room Air Laboratory Results Laboratory Results WBC 9.83 K/ul (4.8-10.8) 10/22/23 20:43 RBC 5.14 M/uL (4.70-6.10) 10/22/23 20:43 Hgb 17.4 g/dl (14.0-18.0) 10/22/23 20:43 POC Hgb 17.3 g/dl (14.0-18.0) 10/22/23 20:47 Hct 48.9 % (42.0-52.0) 10/22/23 20:43 POC Hct 51 % (42-52) 10/22/23 20:47 MCV 95.1 fL (80.0-100.0) 10/22/23 20:43 MCH 33.9 pg (25.0-34.0) 10/22/23 20:43 MCHC 35.6 g/dL (32.0-36.0) 10/22/23 20:43 RDW Std Deviation 47.2 fL (36.4-46.3) H 10/22/23 20:43 RDW Coeff of Chung 13.4 % (11.5-14.5) 10/22/23 20:43 Plt Count 355 K/uL (130-400) 10/22/23 20:43 MPV 9.9 fL (9.4-12.4) 10/22/23 20:43 PT 11.9 Seconds (9.0-12.0) 10/22/23 20:43 INR 1.1 (0.9-1.1) 10/22/23 20:43 APTT 25 Seconds (21-31) 10/22/23 20:43 PTT Ratio 0.9 10/22/23 20:43 POC Sodium 141 mmol/L (135-144) 10/22/23 20:47 Sodium 140 mmol/L (136-145) 10/22/23 20:43 POC Potassium 3.4 mmol/L (3.3-5.0) 10/22/23 20:47 Potassium 3.3 mmol/L (3.5-5.1) L 10/22/23 20:43 POC Chloride 103 mmol/L (101-112) 10/22/23 20:47 Chloride 104 mmol/L (98-107) 10/22/23 20:43 Carbon Dioxide 23 mmol/L (21-32) 10/22/23 20:43 POC Total CO2 24 mmol/L (24-31) 10/22/23 20:47 Anion Gap 13 (3-11) H 10/22/23 20:43 POC Anion Gap 19.0 mmol/L (16-25) 10/22/23 20:47 POC BUN < 3 mg/dl (7-18) L 10/22/23 20:47 BUN 3 mg/dl (6-23) L 10/22/23 20:43 Creatinine 0.83 mg/dl (0.6-1.4) 10/22/23 20:43 POC Creatinine 1.2 mg/dl (0.6-1.3) 10/22/23 20:47 Est Cr Clr Drug Dosing 105.2 ml/min 10/22/23 20:43 Est GFR ( Amer) 111.6 ml/min 10/22/23 20:43 Est GFR (Non-Af Amer) 96.3 ml/min 10/22/23 20:43 BUN/Creatinine Ratio 3.6 (10-20) L 10/22/23 20:43 Glucose 141 mg/dl (70-99(Fasting)) H 10/22/23 20:43 POC Glucose 127 mg/dl (70-99) H 10/23/23 01:20 POC Glucose (other) 142 mg/dl (70-99) H 10/22/23 20:47 Calcium 8.9 mg/dl (8.6-10.3) 10/22/23 20:43 POC Ioniz Calcium Omayra 0.98 mmol/l (1.12-1.32) L 10/22/23 20:47 Magnesium 1.9 mg/dl (1.7-2.4) 10/22/23 20:43 Total Bilirubin 0.7 mg/dl (0.2-1.0) 10/22/23 20:43 AST 36 U/L (13-39) 10/22/23 20:43 ALT 29 U/L (7-52) 10/22/23 20:43 Alkaline Phosphatase 69 U/L (34-104) 10/22/23 20:43 Troponin I High Sens 20.2 pg/ml (0-20) H 10/22/23 23:35 B-Natriuretic Peptide 9 pg/ml (0-100) 10/22/23 20:43 Total Protein 7.9 gm/dl (6.0-8.3) 10/22/23 20:43 Albumin 4.0 gm/dl (3.4-5.0) 10/22/23 20:43 Globulin 3.9 gm/dl (2.5-4.0) 10/22/23 20:43 Albumin/Globulin Ratio 1.0 (0.9-2) 10/22/23 20:43 Urine Color Yellow 10/23/23 02:15 Urine Appearance Clear (Clear) 10/23/23 02:15 Urine pH 6.0 (4.5-7.5) 10/23/23 02:15 Ur Specific [place] > 1.045 (1.000-1.030) H 10/23/23 02:15 Urine Protein Trace (Negative) H 10/23/23 02:15 Urine Glucose (UA) Negative (Negative) 10/23/23 02:15 Urine Ketones Negative (Negative) 10/23/23 02:15 Urine Blood Negative (Negative) 10/23/23 02:15 Urine Nitrite Negative (Negative) 10/23/23 02:15 Urine Bilirubin Negative (Negative) 10/23/23 02:15 Urine Urobilinogen Negative (Negative) 10/23/23 02:15 Ur Leukocyte Esterase Negative (Negative) 10/23/23 02:15 Urine WBC (Auto) 0-5 /hpf (0-5) 10/23/23 02:15 Urine RBC (Auto) 0-2 /hpf (0-2) 10/23/23 02:15 U Hyaline Cast (Auto) 0-2 /lpf (0-2) 10/23/23 02:15 U Epithel Cells (Auto) 0-2 /hpf (0-2) 10/23/23 02:15 Urine Bacteria (Auto) None Seen (None Seen) 10/23/23 02:15 Nasal Screen MRSA (PCR) Negative (Negative) 10/23/23 00:27 Ethyl Alcohol mg/dL 352.1 mg/dl (<10.0) H 10/22/23 21:[address] 10/22/23 20:36 CR Exam(s): CT HEAD Without Contrast EXAM: CT Head Without Intravenous Contrast CLINICAL HISTORY: Reason for exam: Neuro deficit, acute, stroke suspected. TECHNIQUE: Axial computed tomography images of the head/brain without intravenous contrast. CTDI is 43.68 mGy and DLP is 774.27 mGy-cm. Automated exposure control was utilized for the study. A dose lowering technique was utilized adhering to the principles of ALARA. COMPARISON: No relevant prior studies available. FINDINGS: Limitations: Motion. Brain: Cortical cerebral volume loss. Snyder-white matter differentiation maintained. No hemorrhage, mass-effect, or midline shift. No significant white matter disease. Ventricles: Unremarkable. No hydrocephalus. Bones/joints: Unremarkable. No acute fracture. Soft tissues: Unremarkable. Sinuses: Unremarkable as visualized. Mastoid air cells: Unremarkable as visualized. No mastoid effusion. IMPRESSION: Limited by motion. No acute intracranial findings as visualized. Communications: Call Doctor Stroke Electronically signed by: Ashlyn Goddard M.D. 10/22/23 21:24 PM Head CTA 10/22/23 20:40 CR Exam(s): CTA HEAD With Contrast IV Amt: 120 ml optiray 320 EXAM: CT Angiography Head With Intravenous Contrast CLINICAL HISTORY: Reason for exam: stroke. TECHNIQUE: Axial computed tomographic angiography images of the head with intravenous contrast. CTDI is 43.68 mGy and DLP is 774.27 mGy-cm. Automated exposure control was utilized for the study. A dose lowering technique was utilized adhering to the principles of ALARA. MIP reconstructed images were created and reviewed. CONTRAST: Patient received 120 ml optiray 320 of IV contrast COMPARISON: No relevant prior studies available. FINDINGS: Right internal carotid artery: No acute findings. Intracranial segment is patent with no significant stenosis. No aneurysm. Right anterior cerebral artery: Unremarkable. No occlusion or significant stenosis. No aneurysm. Right middle cerebral artery: Short segment right M2 branch occlusion in the sylvian fissure with immediate distal reconstitution (series 9, images 96-103; series 901, image 26). Occluded segment measures approximately 0.3 cm in length. Right M1 segment and remaining right M2 segments appear adequately patent. No aneurysm. 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 No occlusion or significant stenosis. No aneurysm. Right vertebral artery: Unremarkable as visualized. Left internal carotid artery: No acute findings. Intracranial segment is patent with no significant stenosis. No aneurysm. Left anterior cerebral artery: Unremarkable. No occlusion or significant stenosis. No aneurysm. Left middle cerebral artery: Unremarkable. No occlusion or significant stenosis. No aneurysm. Left posterior cerebral artery: Unremarkable. No occlusion or significant stenosis. No aneurysm. Left vertebral artery: Unremarkable as visualized. Basilar artery: Unremarkable. No occlusion or significant stenosis. No aneurysm. IMPRESSION: Short segment right M2 branch occlusion in the sylvian fissure with immediate distal reconstitution (series 9, images 96-103; series 901, image 26). Occluded segment measures approximately 0.3 cm in length. Communications: Call Doctor Stroke Electronically signed by: Ashlyn Goddard M.D. 10/22/23 21:32 PM Neck CTA 10/22/23 20:40 CR Exam(s): CTA NECK With Contrast IV Amt: 120 ml optiray 320 EXAM: CT Angiography Neck With Intravenous Contrast CLINICAL HISTORY: Reason for exam: stroke. TECHNIQUE: Routine carotid CT angiography protocol was performed with intravenous contrast. NASCET criteria using the distal ICAs for comparison were used for evaluation of stenoses. CTDI is 38.46 mGy and DLP is 538.21 mGy-cm. Automated exposure control was utilized for the study. A dose lowering technique was utilized adhering to the principles of ALARA. MIP reconstructed images were created and reviewed. CONTRAST: Patient received 120 ml optiray 320 of IV contrast COMPARISON: None. FINDINGS: VASCULATURE: Right common carotid artery: Unremarkable. No occlusion or significant stenosis. No dissection. Right internal carotid artery: Unremarkable. Extracranial segment is patent with no occlusion or significant stenosis. No dissection. Right external carotid artery: Unremarkable. No occlusion. Right vertebral artery: Unremarkable. No occlusion or significant stenosis. No dissection. Left common carotid artery: Unremarkable. No occlusion or significant stenosis. No dissection. Left internal carotid artery: Unremarkable. Extracranial segment is patent with no occlusion or significant stenosis. No dissection. Left external carotid artery: Unremarkable. No occlusion. Left vertebral artery: Unremarkable. No occlusion or significant stenosis. No dissection. Aorta: Four-vessel aortic arch branch anatomy with direct origin of the left vertebral artery from the arch. NECK: Bones/joints: Unremarkable. No acute fracture. Soft tissues: Unremarkable. Lung apices: Clear. CAROTID STENOSIS REFERENCE USING NASCET CRITERIA: % ICA stenosis = (1 - narrowest ICA diameter/diameter of distal cervical ICA) x 100. Mild - <50% stenosis. Moderate - 50-69% stenosis. Severe - 70-94% stenosis. Near occlusion - 95-99% stenosis. Occluded - 100% stenosis. IMPRESSION: No dissection, hemodynamically significant stenosis, or occlusion. Communications: Call Doctor Stroke Electronically signed by: Ashlyn Goddard M.D. 10/22/23 21:26 PM Brain MRI 10/23/23 00:43 Exam(s): MRI HEAD W/WO Contrast IV Amt: 11cc gadavist EXAM: MR Head Without and With Intravenous Contrast CLINICAL HISTORY: Reason for exam: CVA. TECHNIQUE: Magnetic resonance images of the head/brain without and with intravenous contrast in multiple planes. CONTRAST: Patient received 11cc gadavist of IV contrast COMPARISON: CT head 10/22/23 FINDINGS: Brain: No diffusion restriction to suggest acute cerebral ischemia. No acute intracranial hemorrhage or abnormal extra-axial fluid collection. No intracranial mass or abnormal enhancement. A few scattered foci of FLAIR signal hyperintensity in the cerebral white matter are nonspecific but most likely due to minimal chronic small vessel ischemic change. Proximal intracranial flow voids appear normal. Mild cortical cerebral volume loss. Ventricles: Unremarkable. No hydrocephalus. Bones/joints: Unremarkable. No acute fracture. Sinuses: Trace mucosal thickening in the ethmoids. Mastoid air cells: Unremarkable as visualized. No mastoid effusion. Orbits: Unremarkable as visualized. IMPRESSION: No acute findings in the head/brain. There are a few subtle punctate foci of possible diffusion restriction along the cortical ribbon of the right temporal lobe, parietal lobe, and insula, with a few additional punctate foci within the deep right cerebral white matter, concerning for punctate foci of acute cerebral ischemia. Electronically signed by: Ashlyn Goddard M.D. 10/23/23 02:54 AM ECG Additional Comments: EKG with NSR at 88, no acute ischemic changes PG Care Time/CCT Total # of Minutes Spent Total Time Spent with Patient: Total time spent is greater than 50% in coordination of care (as documented) at patient's floor/unit and/or counseling patient: Coding Level of Care Code 52575 INT INP/OBS CARE 2MIN Diagnoses Acute CVA (cerebrovascular accident) I63.9 Alcohol intoxication F10.929
[2023-10-22] MEDS: ASPIRIN 81 MG ECTAB PO STA (23:32)
[2023-10-23] MEDS ORDERED: Ativan PO Alcohol Withdrawal--Active Protocol PO PRN (00:43)
[2023-10-23] MEDS ORDERED: LORazepam 3 MG in SYRINGE 1.5 ML IV PRN (00:43)
[2023-10-23] MEDS ORDERED: PHARMACIST DISCHARGE MED REC CONSULT PRN (00:43)
[2023-10-23] MEDS ORDERED: Ativan IV Alcohol Withdrawal--Active Protocol IV PRN (00:43)
[2023-10-23] MEDS ORDERED: LORazepam 1 MG TAB PO PRN (01:04)
[2023-10-23] MEDS ORDERED: LORAZEPAM 1MG TAB ACTIVE PROTOCOL PO PRN (01:15)
[2023-10-23] MEDS: GADOBUTROL 65ML VIAL IV ONE (01:59)
[2023-10-23] MEDS: MULTI-VITAMIN INFUSION 10 ML, THIAMINE HCL 100 MG, FOLIC ACID 1 MG in SODIUM CHLORIDE 0... IV ONE (02:28)
--- NOTE | 2023-10-23 02:55 | Magnetic Resonance Report ---
Exam(s): MRI HEAD W/WO Contrast IV Amt: 11cc gadavist EXAM: MR Head Without and With Intravenous Contrast CLINICAL HISTORY: Reason for exam: CVA. TECHNIQUE: Magnetic resonance images of the head/brain without and with intravenous contrast in multiple planes. CONTRAST: Patient received 11cc gadavist of IV contrast COMPARISON: CT head 10/22/23 FINDINGS: Brain: No diffusion restriction to suggest acute cerebral ischemia. No acute intracranial hemorrhage or abnormal extra-axial fluid collection. No intracranial mass or abnormal enhancement. A few scattered foci of FLAIR signal hyperintensity in the cerebral white matter are nonspecific but most likely due to minimal chronic small vessel ischemic change. Proximal intracranial flow voids appear normal. Mild cortical cerebral volume loss. Ventricles: Unremarkable. No hydrocephalus. Bones/joints: Unremarkable. No acute fracture. Sinuses: Trace mucosal thickening in the ethmoids. Mastoid air cells: Unremarkable as visualized. No mastoid effusion. Orbits: Unremarkable as visualized. IMPRESSION: No acute findings in the head/brain. Electronically signed by: Ashlyn Goddard M.D. 10/23/23 02:54 AM
[2023-10-23 03:22] LABS: Appearance Urine Clear (Clear); Bacteria Urine Automated None Seen (None Seen); Bilirubin Urine Negative (Negative); Blood Urine Negative (Negative); Cast Urine Automated 0-2 /lpf (0-2); Color Urine Yellow; Epithelial Cell Urine Auto 0-2 /hpf (0-2); Glucose Urine UA Negative (Negative); Ketones Urine Negative (Negative); Leukocyte Esterase Urine Negative (Negative); Nitrite Urine Negative (Negative); Protein Urine Trace (Negative); RBC Urine Automated 0-2 /hpf (0-2); Specific Gravity Urine > 1.045 (1.000-1.030); Urobilinogen Urine Negative (Negative); WBC Urine Automated 0-5 /hpf (0-5)
[2023-10-23 04:14] LABS: Amphetamines+Metham, Urine Neg (Neg); Barbiturates, Urine Neg (Neg); Benzodiazepine, Urine Neg (Neg); Cocaine, Urine Neg (Neg); Fentanyl, Urine Neg (Neg); MDMA (Ecstacy), Urine Neg (Neg); Marijuana, Urine Pos (Neg); Methadone, Urine Neg (Neg); Opiate, Urine Neg (Neg); Phencyclidine, Urine Neg (Neg)
[2023-10-23 05:26] LABS: Basophils # (auto) 0.04 K/uL (0.00-0.20); Basophils % (auto) 0.5 %; Eosinophils # (auto) 0.03 K/uL (0.00-0.50); Eosinophils % (auto) 0.4 %; Hematocrit (blood only) 43.9 % (42.0-52.0); Hemoglobin 15.7 g/dl (14.0-18.0); Immature Granulocytes # (auto) 0.03 K/uL (0.01-0.20); Immature Granulocytes % (auto) 0.4 %; Lymphocytes # (auto) 2.71 K/uL (1.20-3.40); Lymphocytes % (auto) 36.1 %; Mean Corpuscular Hemoglobin 34.1 pg (25.0-34.0); Mean Corpuscular Hgb Conc 35.8 g/dL (32.0-36.0); Mean Corpuscular Volume 95.4 fL (80.0-100.0); Mean Platelet Volume 10.3 fL (9.4-12.4); Monocytes # (auto) 0.54 K/uL (0.11-0.59); Monocytes % (auto) 7.2 %; Neutrophils # (auto) 4.16 K/uL (1.40-6.50); Neutrophils % (auto) 55.4 %; Platelet Count 299 K/uL (130-400); RDW Coefficient of Variation 13.6 % (11.5-14.5); RDW Standard Deviation 47.5 fL (36.4-46.3); White Blood Count 7.51 K/ul (4.8-10.8)
[2023-10-23 05:38] LABS: Albumin Globulin Ratio 1.2 (0.9-2); Albumin Level 3.6 gm/dl (3.4-5.0); BUN Creatinine Ratio 4.1 (10-20); Bilirubin Direct 0.1 mg/dl (0-0.2); Bilirubin,Total 0.8 mg/dl (0.2-1.0); Calcium 8.1 mg/dl (8.6-10.3); Chol HDL Ratio 4.6 (0-5); Creatinine Clr Calc Pharmacy 141.4 ml/min; Globulin 3.1 gm/dl (2.5-4.0); Phosphorus 2.8 mg/dl (2.5-4.9); Potassium 3.2 mmol/L (3.5-5.1); Total Protein 6.7 gm/dl (6.0-8.3)
--- NOTE | 2023-10-23 06:53 | XRay Report ---
XR chest 1V portable HISTORY: Stroke symptoms. COMPARISON: Chest 10/22/2018. FINDINGS: No pneumothorax. No pleural effusions. The cardiac silhouette remains borderline enlarged. No focal lung consolidations. No evidence for pulmonary edema. No acute fractures. IMPRESSION: No significant change compared to the prior study. No acute process. ACT 112: Negative or not required by law. Electronically signed by: Larry Boswell M.D. 10/23/2023 6:52 AM
[2023-10-23 07:34] LABS: Estimated Average Glucose 114 mg/dl; Hemoglobin A1C 5.6 % (4.5-5.6)
[2023-10-23] MEDS: FOLIC ACID 1 MG TAB PO SCH (07:51)
[2023-10-23] MEDS: ASPIRIN 81 MG ECTAB PO SCH (07:51)
[2023-10-23] MEDS: CLOPIDOGREL BISULFATE 75 MG TAB PO SCH (07:51)
[2023-10-23] MEDS: ATORVASTATIN 40 MG TAB PO SCH (07:51)
[2023-10-23] MEDS: PANTOprazole 40 MG TAB PO SCH (07:52)
[2023-10-23] MEDS: THIAMINE HCL 100 MG TAB PO SCH (07:52)
[2023-10-23] MEDS: LORazepam 2 MG in SYRINGE 1 ML IV PRN (07:53)
[2023-10-23] MEDS: ICU Protocol for HYPERglycemia SCH (07:53)
--- NOTE | 2023-10-23 08:50 | Neurology Consultation ---
Date of Consultation October 23, 2023 Assessment & Plan (1) Ischemic stroke: History of Present Illness Attending Physician: Saul Nava MD History of Present Illness S: pt this morning feeling much better. essentially resolved speech problem. left hand form presser much improved now. mri brain showing small punctate ischemic stroke on rt side. Chart reviewed. clinincally stable. pt does also smoke m arijuana daily and drink daily. Admission HPI:Johnathon Estevez is a 58yo male with history of asthma and EtOH abuse presenting with stroke-like symptoms. Patient was last seen normal by his today 10/22/23 at 08:30. She then left for a doctor's appointment. Patient reports that he went to the store in the late morning and when he returned from the store he was having a difficult time holding things with his left hand - this was around 11:00 - 12:00. Patient called his sister around 13:00 and was reportedly not speaking clearly so his sister called his . His called him and reported that his speech was slurred - she thinks that he sounded drunk on the phone. Patient's saw him around 17:30 and patient had a left facial droop and was having difficulty holding anything with his left hand. They came to the ER due to concern for stroke. Patient denies headache or visual changes. Denies chest pain, cough, SOB or palpitations. No abdominal pain, nausea, vomiting. He feels that his symptoms are somewhat improving - able to grasp with his left hand currently In regards to Mr. Mcgowan's EtOH intake. He drinks 8-10 shots of Goldschlager daily. He occasional tries to quit drinking "cold turkey" then develops withdrawal symptoms and binge drinks. He does not consider himself and alcoholic. He drank 10 shots today - last drink at 17:30 states that he has not eaten or had anything to drink for 3 days ER Course: ASA 81 + 243 Plavix 300mg Banana bag Allergies Allergy/AdvReac Type Severity Reaction Status Date / Time No Known Allergies Allergy Verified 10/22/23 20:54 Home Medications Medication Instructions Recorded Confirmed Type pantoprazole 40 mg tablet,delayed 40 mg PO DAILY #14 tabs 07/21/21 10/22/23 Rx release (Protonix) acetaminophen 650 mg 1,300 mg PO BID 10/22/23 10/22/23 History tablet,extended release (Tylenol Arthritis Pain) multivitamin 1 tab PO DAILY 10/22/23 10/22/23 History Patient History Medical History Alcohol abuse Surgical History History of repair of rotator cuff History of appendectomy Family History Other Family history non-contributory Family history unknown Social History Smoking Status: Current every day smoker Tobacco Type: Cigarettes packs per day: 1.5; Cigarettes Per Day: 1.5 packs/day; Hx Alcohol Use: Yes Alcohol type: hard liquor Alcohol Intake Frequency: 4 or More x per/Week Alcohol Intake Frequency Comment: 6 shots of liquor daily Hx Substance Use: Yes Last Used Substance: Hours (ago) Preferred Language: Kuwaiti Communication Ability: Effective Visual Impairment: No Limitations Hearing Ability: Normal Montessori Paraprofessional Required: No Beliefs That Will Affect Care: None marital status: Current Living Situation: Spouse current occupational status: employed 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 Other Information That Helps Us Care for You: No Feels Safe at Home: Yes Safety Concerns: Feels Safe At This Time Dental Care, Regularly: Yes Physical Activity Frequency: Does not Exercise Assistive Devices: None Review of Systems Review of Systems: All systems reviewed & are unremarkable except as noted in Subjective Constitutional: as per Subjective / HPI Eyes: as per Subjective / HPI Ear, Nose, Mouth, Throat: as per Subjective / HPI Respiratory: as per Subjective / HPI Cardiovascular: as per Subjective / HPI Gastrointestinal: as per Subjective / HPI Musculoskeletal: as per Subjective / HPI Integumentary: as per Subjective / HPI Neurologic: as per Subjective / HPI Psychiatric: as per Subjective / HPI Endocrine: as per Subjective / HPI Hematologic / Lymphatic: as per Subjective / HPI Allergy / Immunological: as per Subjective / HPI Exam (Neuro) Physical Exam: HEENT: normocephalic Neuro: Mental: AOx4, fluent speech, normal comprehension, no apraxia, no L/R confusion, no neglect CN: PERRL, Full EOM, symmetric face, midline T/U/P, 5/5 SCM/traps. Motor: No abnormal movements, normal tone and bulk, 5/5 t/o bilaterally grossly, maybe subtle left hand form presser 5-/5. Coord: intact grossly. Gait: deferred. limited exam as pt was getting bedside study. Impression: 58 yo male with rt punctate ischemic stroke with essentially resolved symptoms and asymptomatic now in setting of rt M2 occlusion (unknown age). Pt clinically stable. 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 does not appears to be embolic in nature. pt likely had hypoperfusion related stroke from dehydration. Recommendations: 1. Standard stroke work up as planned 2. antiplatelet therapy: * DAPT (dual antiplatelet therapy): start for pts with ABCD2 score 4 or higher. Initial loading dose with ASA 325mg and Plavix 300mg (if pt has not been started), then ASA 81mg daily and Plavix 75mg daily. Continue DAPT for 21 days if found small vessel disease only or continue for 90 days if found to have intracranial large artery atherosclerosis. After that, can continue single antiplatelet therapy (either ASA or Plavix). 3. Images: TTE with bubble 4. Permissive Hypertension for next 24-4 8 hrs. Keep SBP goal range less than 220. Avoid hypotension. Do not stop beta-herbie if on it. 6. Long-term SBP goal less than 130. 7. Plenty of hydration including IV flui d if possible (use isotonic solution) next 1-2 days. Avoid hypovolemia and hypotension. 8. Initiate DVT prevention therapy. 9. Avoid hypoglycemia, serum glucose goa l during hospitalization: 140-180. 10. Long-term HgA1c goal less than 7. 11. Start statin if not on it and no abs olute contraindication, long-term LDL goal less than 70. 12. Head of bed up 30 degrees if possibl e. 13. Stroke education by nursing and appr opriate staff. 14. Telemetry monitoring. Consider termite control technician cardiac monitoring, i.e. MCOT (mobile cardiac outpatient telemetry) or ICM (insertable windows vmware administrator, e.g. LINQ), if never had retirement cardiac monitoring done previously. And if found to have atrial flutter or fibrillation, should consider anticoagulation therapy if no contraindication. 15. Fall precaution and aspiration preca ution. 16. Consult physical and occupational th erapy evaluation. 17. alcohol withdrawal watch and tx for chronic abuse. Chart reviewed I have spent more than 50% educating patient about potential diagnosis and neurological evaluation and coordinating care with patient's treatment team. Total time spent (including chart review and coordination of care): 60 min (this includes chart review). Results & Data Vital Signs (Past 12 Hours) Vital Signs Temp Pulse Pulse Resp BP BP Pulse Ox 10/23/23 08:12 92 H 15 96 10/23/23 08:00 36.4 C L 91 H 20 172/126 H 96 10/23/23 08:00 10/23/23 07:06 101 H 20 97 10/23/23 07:00 37.0 C 92 H 16 150/110 H 99 10/23/23 06:00 36.6 C 82 16 155/95 H 94 10/23/23 05:00 36.5 C 98 H 19 150/92 H 98 10/23/23 04:00 60 18 131/62 92 10/23/23 03:00 36.5 C 77 12 120/70 98 10/23/23 02:47 36.6 C 77 15 137/98 97 10/23/23 01:12 36.8 C 77 16 142/79 H 92 10/23/23 00:43 77 10/23/23 00:37 36.6 C 76 16 164/108 H 93 10/23/23 00:00 62 18 133/99 95 10/22/23 23:15 92 H 19 95 10/22/23 23:01 154/113 H 10/22/23 23:00 85 20 93 10/22/23 22:51 64 19 97 10/22/23 22:48 74 14 95 10/22/23 22:00 139/110 H 10/22/23 22:00 87 16 97 10/22/23 22:00 85 18 139/110 H 97 10/22/23 21:42 65 16 92 10/22/23 21:05 93 H 16 94 10/22/23 21:05 94 10/22/23 21:03 85 10/22/23 21:00 88 20 149/90 H 94 10/22/23 21:00 90 18 150/103 H 92 O2 Del Method O2 Flow Rate 10/23/23 08:12 10/23/23 08:00 Room Air 10/23/23 08:00 Room Air 10/23/23 07:06 10/23/23 07:00 Room Air 10/23/23 06:00 Room Air 06/06/24 05:00 Room Air 10/23/23 04:00 Room Air 10/23/23 03:00 Room Air 10/23/23 02:47 Room Air 10/23/23 01:12 Room Air 10/23/23 00:43 10/23/23 00:37 Room Air 10/23/23 00:00 Room Air 10/22/23 23:15 10/22/23 23:01 10/22/23 23:00 10/22/23 22:51 10/22/23 22:48 10/22/23 22:00 10/22/23 22:00 10/22/23 22:00 Room Air 10/22/23 21:42 10/22/23 21:05 Room Air 10/22/23 21:05 Room Air 0 10/22/23 21:03 10/22/23 21:00 Room Air 10/22/23 21:00 Room Air PG Care Time/CCT Total # of Minutes Spent Total Time Spent with Patient: Total time spent is greater than 50% in coordination of care (as documented) at patient's floor/unit and/or counseling patient: Coding Level of Care Code 22900 IN/OBS CONSULT LVL 4,60M Diagnoses Ischemic stroke I63.9
[2023-10-23] MEDS: NICOTINE 14 MG/24 HR PATCH TD SCH (10:24)
--- NOTE | 2023-10-23 11:00 | Pharmacy Report ---
- Date of Service October 23, 2023 - Pharmacy CVA/TIA Medication Review Medications to Prevent Stroke handout has been added to the patients discharge packet. Antiplatelet(s) * Aspirin 81 mg daily * Plavix 75 mg daily Cholesterol * High intensity statin: atorvastatin 40 mg daily DVT Prophylaxis * SCD thigh Therapeutic Anticoagulation * No history of Afib/Aflutter noted Type 2 Diabetes * Patient does not have T2DM
[2023-10-23] MEDS: LORazepam 1 MG in SYRINGE 0.5 ML IV PRN (11:24)
[2023-10-23] MEDS: POTASSIUM CHLORIDE CRTAB 20 MEQ TABCR PO STA (11:38)
--- NOTE | 2023-10-23 12:40 | Hospitalist Progress Note ---
Date of Service October 23, 2023 Assessment & Plan (1) Acute CVA (cerebrovascular accident): Plan: 58yo male with history of EtOH abuse presenting with acute CVA. Patient found to have subtle punctate foci of possible diffusion restriction concerning for acute cerebral ischemia. Also with M2 occlusion noted on CTA with distal reconstitution. Patient has been loaded with ASA and Plavix. Neurologist on board Recommends aspirin and Plavix for 21 days, then switch to either aspirin or Plavix Permissive hypertension for 4 hours. Goal SBP less than 220 for now. A1c was normal LDL was less than 70. Continue atorvastatin 40 that was started Continue telemonitoring Echocardiogram ordered, pending PT/OT Patient passed swallow eval (2) Alcohol intoxication: Plan: Patient with daily EtoH consumption. High risk for withdrawal. Will likely complicate Neurologic assessments if he is being administered benzos -Banana bag given -Thiamine and folic acid daily -AWSS per protocol Admission and Anticipated Discharge Date Admission Date: October 22, 2023 Subjective Patient feels well. Denies chest pain or shortness of breath. Review of Systems Review of Systems: All systems reviewed & are unremarkable except as noted in Subjective Physical Exam Physical Exam: General: Awake, conversant. Sitting on the recliner Heart: S1, S2/regular rate and rhythm, no murmur rubs or gallops Lungs: Clear to auscultation bilaterally. Normal effort Abdomen: Soft/nontender/nondistended. No hepatosplenomegaly Extremities: No clubbing/cyanosis. No edema Behavior: Appropriate, cooperative Results & Data Results & Data Vital Signs (Past 12 Hours) Vital Signs Temp Pulse Pulse Resp BP Pulse Ox O2 Del Method 10/23/23 12:00 36.8 C 98 H 18 167/98 H 99 Room Air 10/23/23 11:00 37.2 C 96 H 20 160/106 H 96 Room Air 10/23/23 10:00 110 H 20 178/111 H 97 Room Air 10/23/23 09:00 106 H 18 167/90 H 99 Room Air 10/23/23 08:12 92 H 15 96 10/23/23 08:00 36.4 C L 91 H 20 172/126 H 96 Room Air 10/23/23 08:00 Room Air 10/23/23 07:06 101 H 20 97 10/23/23 07:00 37.0 C 92 H 16 150/110 H 99 Room Air 10/23/23 06:00 36.6 C 82 16 155/95 H 94 Room Air 10/23/23 05:00 36.5 C 98 H 19 150/92 H 98 Room Air 10/23/23 04:00 60 18 131/62 92 Room Air 10/23/23 03:00 36.5 C 77 12 120/70 98 Room Air 10/23/23 02:47 36.6 C 77 15 137/98 97 Room Air 10/23/23 01:12 36.8 C 77 16 142/79 H 92 Room Air 10/23/23 00:43 77 Laboratory Results Abnormal lab results 10/22/23 10/22/23 10/22/23 Range/Units 20:43 20:47 20:57 RBC (4.70-6.10) M/uL MCH (25.0-34.0) pg RDW Std Deviation 47.2 H (36.4-46.3) fL Potassium 3.3 L (3.5-5.1) mmol/L Carbon Dioxide (21-32) mmol/L Anion Gap 13 H (3-11) POC BUN < 3 L (7-18) mg/dl BUN 3 L (6-23) mg/dl BUN/Creatinine Ratio 3.6 L (10-20) Glucose 141 H (70-99(Fasting)) mg/dl POC Glucose 131 H (70-99) mg/dl POC Glucose (other) 142 H (70-99) mg/dl Calcium (8.6-10.3) mg/dl POC Ioniz Calcium Omayra 0.98 L (1.12-1.32) mmol/l Troponin I High Sens 21.0 H (0-20) pg/ml Triglycerides (0-150) mg/dl VLDL Cholesterol, Calc (0-30) mg/dl Ur Specific Meadow (1.000-1.030) Urine Protein (Negative) U Marijuana (THC) Screen (Neg) Ethyl Alcohol mg/dL (<10.0) mg/dl 10/22/23 10/22/23 10/23/23 Range/Units 21:00 23:35 01:20 RBC (4.70-6.10) M/uL MCH (25.0-34.0) pg RDW Std Deviation (36.4-46.3) fL Potassium (3.5-5.1) mmol/L Carbon Dioxide (21-32) mmol/L Anion Gap (3-11) POC BUN (7-18) mg/dl BUN (6-23) mg/dl BUN/Creatinine Ratio (10-20) Glucose (70-99(Fasting)) mg/dl POC Glucose 127 H (70-99) mg/dl POC Glucose (other) (70-99) mg/dl Calcium (8.6-10.3) mg/dl POC Ioniz Calcium Omayra (1.12-1.32) mmol/l Troponin I High Sens 20.2 H (0-20) pg/ml Triglycerides (0-150) mg/dl VLDL Cholesterol, Calc (0-30) mg/dl Ur Specific Meadow (1.000-1.030) Urine Protein (Negative) U Marijuana (THC) Screen (Neg) Ethyl Alcohol mg/dL 352.1 H (<10.0) mg/dl 10/23/23 10/23/23 10/23/23 Range/Units 02:15 04:36 07:23 RBC 4.60 L (4.70-6.10) M/uL MCH 34.1 H (25.0-34.0) pg RDW Std Deviation 47.5 H (36.4-46.3) fL Potassium 3.2 L (3.5-5.1) mmol/L Carbon Dioxide 19 L (21-32) mmol/L Anion Gap 15 H (3-11) POC BUN (7-18) mg/dl BUN 3 L (6-23) mg/dl BUN/Creatinine Ratio 4.1 L (10-20) Glucose 123 H (70-99(Fasting)) mg/dl POC Glucose 110 H (70-99) mg/dl POC Glucose (other) (70-99) mg/dl Calcium 8.1 L (8.6-10.3) mg/dl POC Ioniz Calcium Omayra (1.12-1.32) mmol/l Troponin I High Sens (0-20) pg/ml Triglycerides 369 H (0-150) mg/dl VLDL Cholesterol, Calc 74 H (0-30) mg/dl Ur Specific Meadow > 1.045 H (1.000-1.030) Urine Protein Trace H (Negative) U Marijuana (THC) Screen Pos H (Neg) Ethyl Alcohol mg/dL (<10.0) mg/dl 10/23/23 Range/Units 11:16 RBC (4.70-6.10) M/uL MCH (25.0-34.0) pg RDW Std Deviation (36.4-46.3) fL Potassium (3.5-5.1) mmol/L Carbon Dioxide (21-32) mmol/L Anion Gap (3-11) POC BUN (7-18) mg/dl BUN (6-23) mg/dl BUN/Creatinine Ratio (10-20) Glucose (70-99(Fasting)) mg/dl POC Glucose 130 H (70-99) mg/dl POC Glucose (other) (70-99) mg/dl Calcium (8.6-10.3) mg/dl POC Ioniz Calcium Omayra (1.12-1.32) mmol/l Troponin I High Sens (0-20) pg/ml Triglycerides (0-150) mg/dl VLDL Cholesterol, Calc (0-30) mg/dl Ur Specific Meadow (1.000-1.030) Urine Protein (Negative) U Marijuana (THC) Screen (Neg) Ethyl Alcohol mg/dL (<10.0) mg/dl Diagnostic Findings Chest X-Ray 10/22/23 20:36 XR chest 1V portable HISTORY: Stroke symptoms. COMPARISON: Chest 10/22/2018. FINDINGS: No pneumothorax. No pleural effusions. The cardiac silhouette remains borderline enlarged. No focal lung consolidations. No evidence for pulmonary edema. No acute fractures. IMPRESSION: No significant change compared to the prior study. No acute process. ACT 112: Negative or not required by law. Electronically signed by: Larry Boswell M.D. 10/23/2023 6:[address] 10/22/23 20:36 CR Exam(s): CT HEAD Without Contrast EXAM: CT Head Without Intravenous Contrast CLINICAL HISTORY: Reason for exam: Neuro deficit, acute, stroke suspected. TECHNIQUE: Axial computed tomography images of the head/brain without intravenous contrast. CTDI is 43.68 mGy and DLP is 774.27 mGy-cm. Automated exposure control was utilized for the study. A dose lowering technique was utilized adhering to the principles of ALARA. COMPARISON: No relevant prior studies available. FINDINGS: Limitations: Motion. Brain: Cortical cerebral volume loss. Snyder-white matter differentiation maintained. No hemorrhage, mass-effect, or midline shift. No significant white matter disease. Ventricles: Unremarkable. No hydrocephalus. Bones/joints: Unremarkable. No acute fracture. Soft tissues: Unremarkable. Sinuses: Unremarkable as visualized. Mastoid air cells: Unremarkable as visualized. No mastoid effusion. IMPRESSION: Limited by motion. No acute intracranial findings as visualized. Communications: Call Doctor Stroke Electronically signed by: Ashlyn Goddard M.D. 10/22/23 21:24 PM Head CTA 10/22/23 20:40 CR Exam(s): CTA HEAD With Contrast IV Amt: 120 ml optiray 320 EXAM: CT Angiography Head With Intravenous Contrast CLINICAL HISTORY: Reason for exam: stroke. TECHNIQUE: Axial computed tomographic angiography images of the head with intravenous contrast. CTDI is 43.68 mGy and DLP is 774.27 mGy-cm. Automated exposure control was utilized for the study. A dose lowering technique was utilized adhering to the principles of ALARA. MIP reconstructed images were created and reviewed. CONTRAST: Patient received 120 ml optiray 320 of IV contrast COMPARISON: No relevant prior studies available. FINDINGS: Right internal carotid artery: No acute findings. Intracranial segment is patent with no significant stenosis. No aneurysm. Right anterior cerebral artery: Unremarkable. No occlusion or significant stenosis. No aneurysm. Right middle cerebral artery: Short segment right M2 branch occlusion in the sylvian fissure with immediate distal reconstitution (series 9, images 96-103; series 901, image 26). Occluded segment measures approximately 0.3 cm in length. Right M1 segment and remaining right M2 segments appear adequately patent. No aneurysm. Right posterior cerebral artery: origin of the right COLLAR SHAPER OPERATOR. No occlusion or significant stenosis. No aneurysm. Right vertebral artery: Unremarkable as visualized. Left internal carotid artery: No acute findings. Intracranial segment is patent with no significant stenosis. No aneurysm. Left anterior cerebral artery: Unremarkable. No occlusion or significant stenosis. No aneurysm. Left middle cerebral artery: Unremarkable. No occlusion or significant stenosis. No aneurysm. Left posterior cerebral artery: Unremarkable. No occlusion or significant stenosis. No aneurysm. Left vertebral artery: Unremarkable as visualized. Basilar artery: Unremarkable. No occlusion or significant stenosis. No aneurysm. IMPRESSION: Short segment right M2 branch occlusion in the sylvian fissure with immediate distal reconstitution (series 9, images 96-103; series 901, image 26). Occluded segment measures approximately 0.3 cm in length. Communications: Call Doctor Stroke Electronically signed by: Ashlyn Goddard M.D. 10/22/23 21:32 PM Neck CTA 10/22/23 20:40 CR Exam(s): CTA NECK With Contrast IV Amt: 120 ml optiray 320 EXAM: CT Angiography Neck With Intravenous Contrast CLINICAL HISTORY: Reason for exam: stroke. TECHNIQUE: Routine carotid CT angiography protocol was performed with intravenous contrast. NASCET criteria using the distal ICAs for comparison were used for evaluation of stenoses. CTDI is 38.46 mGy and DLP is 538.21 mGy-cm. Automated exposure control was utilized for the study. A dose lowering technique was utilized adhering to the principles of ALARA. MIP reconstructed images were created and reviewed. CONTRAST: Patient received 120 ml optiray 320 of IV contrast COMPARISON: None. FINDINGS: VASCULATURE: Right common carotid artery: Unremarkable. No occlusion or significant stenosis. No dissection. Right internal carotid artery: Unremarkable. Extracranial segment is patent with no occlusion or significant stenosis. No dissection. Right external carotid artery: Unremarkable. No occlusion. Right vertebral artery: Unremarkable. No occlusion or significant stenosis. No dissection. Left common carotid artery: Unremarkable. No occlusion or significant stenosis. No dissection. Left internal carotid artery: Unremarkable. Extracranial segment is patent with no occlusion or significant stenosis. No dissection. Left external carotid artery: Unremarkable. No occlusion. Left vertebral artery: Unremarkable. No occlusion or significant stenosis. No dissection. Aorta: Four-vessel aortic arch branch anatomy with direct origin of the left vertebral artery from the arch. NECK: Bones/joints: Unremarkable. No acute fracture. Soft tissues: Unremarkable. Lung apices: Clear. CAROTID STENOSIS REFERENCE USING NASCET CRITERIA: % ICA stenosis = (1 - narrowest ICA diameter/diameter of distal cervical ICA) x 100. Mild - <50% stenosis. Moderate - 50-69% stenosis. Severe - 70-94% stenosis. Near occlusion - 95-99% stenosis. Occluded - 100% stenosis. IMPRESSION: No dissection, hemodynamically significant stenosis, or occlusion. Communications: Call Doctor Stroke Electronically signed by: Ashlyn Goddard M.D. 10/22/23 21:26 PM Brain MRI 10/23/23 00:43 Exam(s): MRI HEAD W/WO Contrast IV Amt: 11cc gadavist EXAM: MR Head Without and With Intravenous Contrast CLINICAL HISTORY: Reason for exam: CVA. TECHNIQUE: Magnetic resonance images of the head/brain without and with intravenous contrast in multiple planes. CONTRAST: Patient received 11cc gadavist of IV contrast COMPARISON: CT head 10/22/23 FINDINGS: Brain: No diffusion restriction to suggest acute cerebral ischemia. No acute intracranial hemorrhage or abnormal extra-axial fluid collection. No intracranial mass or abnormal enhancement. A few scattered foci of FLAIR signal hyperintensity in the cerebral white matter are nonspecific but most likely due to minimal chronic small vessel ischemic change. Proximal intracranial flow voids appear normal. Mild cortical cerebral volume loss. Ventricles: Unremarkable. No hydrocephalus. Bones/joints: Unremarkable. No acute fracture. Sinuses: Trace mucosal thickening in the ethmoids. Mastoid air cells: Unremarkable as visualized. No mastoid effusion. Orbits: Unremarkable as visualized. IMPRESSION: No acute findings in the head/brain. Electronically signed by: Ashlyn Goddard M.D. 10/23/23 02:54 AM PG Care Time/CCT Total # of Minutes Spent Total Time Spent with Patient: Total time spent is greater than 50% in coordination of care (as documented) at patient's floor/unit and/or counseling patient: Coding Level of Care Code 69452 SUB INP/OBS CARE 2/35MIN Diagnoses Acute CVA (cerebrovascular accident) I63.9 Alcohol intoxication F10.929
--- NOTE | 2023-10-23 16:02 | XCELERA ---
[id number] [id number]
[2023-10-23] MEDS: POLYETHYLENE (MIRALAX) 17 GM PACK PO PRN (18:29)
--- NOTE | 2023-10-23 22:13 | Electrocardiogram Report ---
Test Reason : Blood Pressure : / mmHG Vent. Rate : 088 BPM Atrial Rate : 088 BPM P-R Int : 134 ms QRS Dur : 102 ms QT Int : 376 ms P-R-T Axes : 060 038 062 degrees QTc Int : 454 ms Normal sinus rhythm Low voltage QRS When compared with ECG of 20-JUL-2021 08:47, Premature supraventricular complexes are no longer Present Questionable change in initial forces of Anteroseptal leads Confirmed by Jake Kam ([id number]) on 10/23/2023 10:12:47 PM Referred By: REFERRED SELF Confirmed By:Jake Kam
--- NOTE | 2023-10-24 08:00 | Neurology Progress Note ---
Date of Service October 24, 2023 Assessment & Plan (1) Ischemic stroke: Admission and Anticipated Discharge Date Admission Date: October 22, 2023 Subjective pt doing well. no deficits. vitals stable. 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 Pt clinically stable. . pt likely had hypoperfusion related stroke from dehydration. echo negative. Recommendations: routine stroke care as now. statin and DAPT alcohol withdrawal watch stroke risk modification goals as recommended before. please call again if new question. Chart reviewed I have spent more than 50% educating patient about potential diagnosis and neurological evaluation and coordinating care with patient's treatment team. Total time spent (including chart review and coordination of care): 35 min (this includes chart review). PG Care Time/CCT Total # of Minutes Spent Total Time Spent with Patient: Total time spent is greater than 50% in coordination of care (as documented) at patient's floor/unit and/or counseling patient: Coding Level of Care Code 16005 SUB INP/OBS CARE 2/35MIN Diagnoses Ischemic stroke I63.9
[2023-10-24] MEDS: lisinopril 20 MG TAB PO SCH (12:46)
[2023-10-24 13:02] LABS: BUN Creatinine Ratio 8.9 (10-20); Calcium 8.5 mg/dl (8.6-10.3); Creatinine Clr Calc Pharmacy 131.9 ml/min; Est GFR (African American) 113.9 ml/min; Est GFR (Non-African American) 98.3 ml/min; Potassium 3.3 mmol/L (3.5-5.1)
--- NOTE | 2023-10-24 16:20 | Hospitalist Progress Note ---
Date of Service October 24, 2023 Assessment & Plan (1) Acute CVA (cerebrovascular accident): Plan: 58yo male with history of EtOH abuse presenting with acute CVA. Patient found to have subtle punctate foci of possible diffusion restriction concerning for acute cerebral ischemia. Also with M2 occlusion noted on CTA with distal reconstitution. Patient has been loaded with ASA and Plavix. Neurologist on board Recommends aspirin and Plavix for 21 days, then switch to either aspirin or Plavix Will control blood pressure now that past the permissive hypertension phase Added lisinopril A1c was normal LDL was less than 70. Continue atorvastatin 40 that was started Continue telemonitoring Echocardiogram unremarkable PT/OT initially recommended rehab. However patient is doing better and hopefully will return to his baseline status so he can go home tomorrow. (2) Alcohol intoxication: Plan: Patient with daily EtoH consumption. High risk for withdrawal. Will likely complicate Neurologic assessments if he is being administered benzos -Banana bag given -Thiamine and folic acid daily -AWSS per protocol Plan Likely discharge tomorrow. Admission and Anticipated Discharge Date Admission Date: October 22, 2023 Subjective Patient states that he feels well overall. He is very motivated to go home. Review of Systems Review of Systems: All systems reviewed & are unremarkable except as noted in Subjective Physical Exam Physical Exam: General: Awake, conversant. Heart: S1, S2/regular rate and rhythm, no murmur rubs or gallops Lungs: Clear to auscultation bilaterally. Normal effort Abdomen: Soft/nontender/nondistended. No hepatosplenomegaly Extremities: No clubbing/cyanosis. No edema Behavior: Appropriate, cooperative Results & Data Results & Data Vital Signs (Past 12 Hours) Vital Signs Temp Pulse Pulse Resp BP Pulse Ox O2 Del Method 10/24/23 14:59 87 10/24/23 14:24 36.5 C 111 H 20 134/88 96 Room Air 10/24/23 12:32 36.5 C 74 20 166/74 H 94 Room Air 10/24/23 08:00 36.7 C 81 18 154/81 H 96 Room Air 10/24/23 08:00 36.6 C 79 20 138/100 97 Room Air 10/24/23 07:33 72 Laboratory Results Abnormal lab results 10/24/23 Range/Units 06:00 Potassium 3.3 L (3.5-5.1) mmol/L BUN/Creatinine Ratio 8.9 L (10-20) Glucose 105 H (70-99(Fasting)) mg/dl Calcium 8.5 L (8.6-10.3) mg/dl PG Care Time/CCT Total # of Minutes Spent Total Time Spent with Patient: Total time spent is greater than 50% in coordination of care (as documented) at patient's floor/unit and/or counseling patient: Coding Level of Care Code 32024 SUB INP/OBS CARE 2/35MIN Diagnoses Acute CVA (cerebrovascular accident) I63.9 Alcohol intoxication F10.929
[2023-10-24 17:02] VITALS: PULSE 114; RESP 22; TEMP 98.2; O2SAT 97
[2023-10-24 17:05] VITALS: BP 157/99
[2023-10-24] MEDS: POTASSIUM CHLORIDE CRTAB 20 MEQ TABCR PO STA (17:48)
--- NOTE | 2023-10-24 18:05 | Discharge Summary ---
Date of Service October 24, 2023 Admission HPI Per Admitting Provider Johnathon Estevez is a 58yo male with history of asthma and EtOH abuse presenting with stroke-like symptoms. Patient was last seen normal by his today 10/22/23 at 08:30. She then left for a doctor's appointment. Patient reports that he went to the store in the late morning and when he returned from the store he was having a difficult time holding things with his left hand - this was around 11:00 - 12:00. Patient ca lled his sister around 13:00 and was reportedly not speaking clearly so his sister called his . His called him and reported that his speech was slurred - she thinks that he sounded drunk on the phone. Patient's saw him around 17:30 and patient had a left facial droop and was having difficulty holding anything with his left hand. They came to the ER due to concern for stroke. Patient denies headache or visual changes. Denies chest pain, cough, SOB or palpitations. No abdominal pain, nausea, vomiting. He feels that his symptoms are somewhat improving - able to grasp with his left hand currently In regards to Mr. Mcgowan's EtOH intake. He drinks 8-10 shots of Goldschlager daily. He occasional tries to quit drinking "cold turkey" then develops withdrawal symptoms and binge drinks. He does not consider himself and alcoholic. He drank 10 shots today - last drink at 17:30 states that he has not eaten or had anything to drink for 3 days ER Course: ASA 81 + 243 Plavix 300mg Banana bag Admission Exam Per Admitting Provider General: patient intoxicated, smells of EtOH, emotional during encounter crying several times Skin: warm, dry, intact, no rashes or lesions HEENT: NC/AT, PERRL, EOMI, anicteric sclera, conjunctiva without injection, external ear normal to inspection and nontender, nares patent, moist mucus membranes, dentition intact, no oropharyngeal lesions, neck supple, trachea midline, no LAD, no thyromegaly, no JVD Heart: +S1/S2, regular, no m/r/g Lungs: equal air entry bilaterally, no rales/rhonchi/wheezes Abd: +BS, soft, NT/ND, no masses/organomegaly/ascites Ext: warm, 2+ pulses in UE/LE bilaterally, no clubbing/cyanosis or edema Neuro: AA&O, speech slurred, left facial droop, diminished sensation to light tough on left face, arm and leg, MS 4/5 in LUE with pronator drift, MS 5/5 in RUE, RLE and LLE. +Nystagmus and dysmetria noted on finger to nose, gait not assessed Principal Diagnosis Acute right MCA distribution ischemic CVA Alcohol intoxication with mild alcohol withdrawal Discharge Exam General: Awake, conversant. Heart: S1, S2/regular rate and rhythm, no murmur rubs or gallops Lungs: Clear to auscultation bilaterally. Normal effort Abdomen: Soft/nontender/nondistended. No hepatosplenomegaly Extremities: No clubbing/cyanosis. No edema Behavior: Appropriate, cooperative Discharge Data Allergies Allergy/AdvReac Type Severity Reaction Status Date / Time No Known Allergies Allergy Verified 10/22/23 20:54 Consultations 10/23/23 00:43 Consult Neurology Routine Ordered Studies 10/22/23 20:36 CT head/brain wo con Stat 10/22/23 20:40 CT angio head w con Stat CT angio neck with con Stat 10/23/23 00:43 MR brain wo/w con Routine Hospital Course (1) Acute CVA (cerebrovascular accident): 58yo male with history of EtOH abuse presenting with acute CVA. Patient found to have subtle punctate foci of possible diffusion restriction concerning for acute cerebral ischemia. Also with M2 occlusion noted on CTA with distal reconstitution. Patient has been loaded with ASA and Plavix. Neurologist on board Recommends aspirin and Plavix for 21 days, then switch to either aspirin or Plavix Will control blood pressure now that past the permissive hypertension phase Added lisinopril A1c was normal LDL was less than 70. Continue atorvastatin 40 that was started Continue telemonitoring Echocardiogram unremarkable PT/OT initially recommended rehab. However patient is doing better and the hope was that tomorrow he will return to his baseline status so he can go home. However the patient wanted to leave AMA today. His blood pressure remains uncontrolled. (2) Alcohol intoxication: Patient with daily EtoH consumption. High risk for withdrawal. -Banana bag given -Thiamine and folic acid daily -AWSS per protocol Patient left AMA today. Plan I personally spoke to the patient and his on the phone. Explained to them why he was not ready for discharge today. He is in complete sound state of mind and is capacitated to make decisions. He was allowed to leave AGAINST MEDICAL ADVICE today. Total Time Total Time Spent Total Time Spent (In Minutes): 35 Discharge Plan Discharge Items Patient Disposition: Against Medical Advice Reason For Visit: ACUTE CVA Non-emergency contact: Primary Care Provider Follow-up/Referrals: [facility],Medicine [Primary Care Provider] - Pending Studies at Discharge: No Stand-Alone Forms: My [facility] [employer], Smoking Cessation, Medications to Prevent Stroke Medications and DC Order Prescriptions: New atorvastatin 40 mg Tablet 40 mg PO QAM 30 Days Qty: 30 0RF clopidogrel 75 mg Tablet 75 mg PO QAM 30 Days Qty: 30 0RF aspirin 81 mg Tablet,Delayed Release (Dr/Ec) 81 mg PO QAM 30 Days Qty: 30 0RF Continued pantoprazole [Protonix] 40 mg tablet,delayed release (DR/EC) 40 mg PO DAILY Qty: 14 0RF multivitamin Tablet 1 tab PO DAILY acetaminophen [Tylenol Arthritis Pain] 650 mg Tablet Extended Release 1,300 mg PO BID Discharge Orders: Left Against Medical Advice (Routine); Ordered 10/24/23 Ordered By: Saul Nava Admission Data Admit Date/Time: 10/22/23 23:29 Attending Provider: Saul Nava Admit Provider: Nicolasa Stinson [facility] Other Providers: Agustín Hines Coding Level of Care Code 83672 INP/OBS DISCH >30 MIN Diagnoses Acute CVA (cerebrovascular accident) I63.9 Alcohol intoxication F10.929
[2023-10-25 11:58] LABS: Marijuana Quant, GCMS Urine 607 ng/mL (<5)
== END 2023-10-24 18:25 | disposition left against medical advice (07) | DRG 66 ==
LOC: ED 20:29 → SUATTDRO 23:29 → 1E 23:29 → 2S 10-23 15:53
DX: Y90.8 Blood alcohol level of 240 mg/100 ml or more; F10.220 Alcohol dependence with intoxication, uncomplicated; J45.909 Unspecified asthma, uncomplicated; I63.511 Cerebral infarction due to unspecified occlusion or stenosis of right middle cerebral artery; Z79.899 Other long term (current) drug therapy; I25.2 Old myocardial infarction; F17.210 Nicotine dependence, cigarettes, uncomplicated; R47.81 Slurred speech; R29.810 Facial weakness; E86.0 Dehydration